=== PATIENT | female | born 1940 | race Two or more races ===

== ENCOUNTER 2017-02-04 21:26 | Inpatient (IN) | payer MEDICARE, BC ==
[2017-02-04] MEDS ORDERED: RX INFO: IV CONTRAST WAS GIVEN 1 EACH MISC MISCELLANE PRN (22:57)
[2017-02-04] MEDS ORDERED: MORPHINE SULFATE 2 MG/ML SYRINGE IVP STA (22:57)
[2017-02-04] MEDS ORDERED: SODIUM CHLORIDE 0.9% 1,000 ML IV STA (22:57)
--- NOTE | 2017-02-04 23:03 | ED ---
General Adult HPI - General Chief complaint: Abdominal Pain Stated complaint: Right flank pain Time Seen by Provider: 02/04/17 22:39 Source: patient, family, RN notes reviewed Mode of arrival: wheelchair Limitations: language barrier - History of Present Illness Initial comments: Patient is a pleasant 76-year-old female presenting to the emergency Department with right flank pain. Patient is a poor historian and history is supplemented with family. Onset of symptoms was just a few hours ago. Discomfort is right flank. Patient states she feels like she needs to urinate. There is question if there is some old seen in the vaginal area. Patient has also had some tingling on the left side of the face for the past week. Family questions whether or not there could be any facial droop. - Related Data Home Medications Medication Instructions Recorded Confirmed Gabapentin [Neurontin] 100 mg PO TID 02/04/17 02/04/17 Latanoprost Ophth [Xalatan 0.005%] 1 drops BOTH EYES HS 02/04/17 02/04/17 Levothyroxine Sodium [Synthroid] 100 mcg PO DAILY 02/04/17 02/04/17 Lisinopril-Hctz 20-12.5 mg 1.5 tab PO DAILY 02/04/17 02/04/17 [Zestoretic 20-12.5] Sertraline [Zoloft] 150 mg PO DAILY 02/04/17 02/04/17 Simvastatin [Zocor] 40 mg PO DAILY 02/04/17 02/04/17 Travoprost [Travatan Z 0.004%] 1 drop BOTH EYES HS 02/04/17 02/04/17 metFORMIN HCL [Glucophage] 500 mg PO TID-W/MEALS 02/04/17 02/04/17 Allergies Allergy/AdvReac Type Severity Reaction Status Date / Time No Known Allergies Allergy Verified 02/04/17 23:06 Review of Systems ROS Statement: Those systems with pertinent positive or pertinent negative responses have been documented in the HPI. ROS Other: All systems not noted in ROS Statement are negative. Constitutional: Denies: fever Eyes: Denies: eye pain ENT: Denies: ear pain Respiratory: Denies: cough Cardiovascular: Denies: chest pain Endocrine: Denies: fatigue Gastrointestinal: Reports: abdominal pain. Denies: nausea, vomiting, constipation Genitourinary: Reports: urgency. Denies: dysuria Musculoskeletal: Denies: back pain Skin: Denies: rash Neurological: Reports: paresthesias (Left facial). Denies: headache Past Medical History Past Medical History: CVA/TIA, Diabetes Mellitus History of Any Multi-Drug Resistant Organisms: None Reported Past Surgical History: No Surgical Hx Reported Past Psychological History: No Psychological Hx Reported Smoking Status: Never smoker Past Alcohol Use History: None Reported Past Drug Use History: None Reported General Exam Limitations: language barrier General appearance: alert, anxious Head exam: Present: atraumatic Eye exam: Present: normal appearance, PERRL ENT exam: Present: normal oropharynx Neck exam: Present: normal inspection Respiratory exam: Present: normal lung sounds bilaterally Cardiovascular Exam: Present: regular rate, normal rhythm Expanded Peripheral pulses: 2+: Dorsalis Pedis (R), Dorsalis Pedis (L) GI/Abdominal exam: Present: soft, tenderness (Mild to moderate tenderness right flank to abdomen.), normal bowel sounds. Absent: distended, guarding, rebound, rigid, pulsatile mass External exam: Present: normal external exam (RN: Domi is Present.), other ( No visualized or palpated prolapse.) By manual exam: Present: normal by manual exam, other (No prolapse palpated.) Extremities exam: Present: normal inspection Back exam: Present: CVA tenderness (R) (Mild) Neurological exam: Present: alert, CN II-XII intact (Unable to visualize specific facial weakness) Expanded Cranial nerves: EOM's Intact: Normal, Facial Sensation: Normal Sensory exam: Upper Extremity Light Touch: Normal, Lower Extremity Light Touch: Normal Motor strength exam: RUE: 5, LUE: 5, RLE: 5, LLE: 5 Psychiatric exam: Present: normal affect, normal mood Skin exam: Absent: rash Course Vital Signs 02/04/17 21:34 Temperature 98.0 F Pulse Rate 72 Respiratory 20 Rate Blood Pressure 199/97 Medical Decision Making - Medical Decision Making Patient reevaluated and resting comfortably in bed. Patient has urinated 700 mL in the emergency department. Patient states she feels somewhat better. Abdomen is soft however still has tenderness on the right side. Case discussed with practitioner Hay, who will admit for Dr. Price, covering for hospital call. - Lab Data Result diagrams: 02/04/17 23:10 02/04/17 23:10 Lab Results 02/04/17 02/04/17 02/04/17 Range/Units 23:10 23:10 23:10 WBC 9.7 (3.8-10.6) k/uL RBC 4.50 (3.80-5.40) m/uL Hgb 12.2 (11.4-16.0) gm/dL Hct 37.0 (34.0-46.0) % MCV 82.2 (80.0-100.0) fL MCH 27.0 (25.0-35.0) pg MCHC 32.9 (31.0-37.0) g/dL RDW 13.5 (11.5-15.5) % Plt Count 221 (150-450) k/uL Neutrophils % 54 % Lymphocytes % 36 % Monocytes % 5 % Eosinophils % 3 % Basophils % 0 % Neutrophils # 5.2 (1.3-7.7) k/uL Lymphocytes # 3.5 (1.0-4.8) k/uL Monocytes # 0.5 (0-1.0) k/uL Eosinophils # 0.3 (0-0.7) k/uL Basophils # 0.0 (0-0.2) k/uL PT 9.9 (9.0-12.0) sec INR 1.0 (<1.1) APTT 25.2 (22.0-30.0) sec Sodium 140 (137-145) mmol/L Potassium 4.2 (3.5-5.1) mmol/L Chloride 104 (98-107) mmol/L Carbon Dioxide 24 (22-30) mmol/L Anion Gap 12 mmol/L BUN 23 H (7-17) mg/dL Creatinine 0.80 (0.52-1.04) mg/dL Est GFR (MDRD) Af Amer >60 (>60 ml/min/1.73 sqM) Est GFR (MDRD) Non-Af >60 (>60 ml/min/1.73 sqM) Glucose 97 (74-99) mg/dL Calcium 9.6 (8.4-10.2) mg/dL Total Bilirubin 0.3 (0.2-1.3) mg/dL AST 18 (14-36) U/L ALT 26 (9-52) U/L Alkaline Phosphatase 91 (38-126) U/L Total Protein 7.5 (6.3-8.2) g/dL Albumin 4.4 (3.5-5.0) g/dL Amylase 61 (30-110) U/L Lipase 149 (23-300) U/L Urine Color Urine Appearance (Clear) Urine pH (5.0-8.0) Ur Specific Blairs (1.001-1.035) Urine Protein (Negative) Urine Glucose (UA) (Negative) Urine Ketones (Negative) Urine Blood (Negative) Urine Nitrite (Negative) Urine Bilirubin (Negative) Urine Urobilinogen (<2.0) mg/dL Ur Leukocyte Esterase (Negative) Urine RBC (0-5) /hpf Urine WBC (0-5) /hpf Ur Squamous Epith Cells (0-4) /hpf Urine Bacteria (None) /hpf 02/04/17 Range/Units 23:10 WBC (3.8-10.6) k/uL RBC (3.80-5.40) m/uL Hgb (11.4-16.0) gm/dL Hct (34.0-46.0) % MCV (80.0-100.0) fL MCH (25.0-35.0) pg MCHC (31.0-37.0) g/dL RDW (11.5-15.5) % Plt Count (150-450) k/uL Neutrophils % % Lymphocytes % % Monocytes % % Eosinophils % % Basophils % % Neutrophils # (1.3-7.7) k/uL Lymphocytes # (1.0-4.8) k/uL Monocytes # (0-1.0) k/uL Eosinophils # (0-0.7) k/uL Basophils # (0-0.2) k/uL PT (9.0-12.0) sec INR (<1.1) APTT (22.0-30.0) sec Sodium (137-145) mmol/L Potassium (3.5-5.1) mmol/L Chloride (98-107) mmol/L Carbon Dioxide (22-30) mmol/L Anion Gap mmol/L BUN (7-17) mg/dL Creatinine (0.52-1.04) mg/dL Est GFR (MDRD) Af Amer (>60 ml/min/1.73 sqM) Est GFR (MDRD) Non-Af (>60 ml/min/1.73 sqM) Glucose (74-99) mg/dL Calcium (8.4-10.2) mg/dL Total Bilirubin (0.2-1.3) mg/dL AST (14-36) U/L ALT (9-52) U/L Alkaline Phosphatase (38-126) U/L Total Protein (6.3-8.2) g/dL Albumin (3.5-5.0) g/dL Amylase (30-110) U/L Lipase (23-300) U/L Urine Color Light Yellow Urine Appearance Clear (Clear) Urine pH 5.5 (5.0-8.0) Ur Specific Blairs 1.008 (1.001-1.035) Urine Protein Negative (Negative) Urine Glucose (UA) Negative (Negative) Urine Ketones Negative (Negative) Urine Blood Negative (Negative) Urine Nitrite Positive H (Negative) Urine Bilirubin Negative (Negative) Urine Urobilinogen <2.0 (<2.0) mg/dL Ur Leukocyte Esterase Trace H (Negative) Urine RBC 3 (0-5) /hpf Urine WBC 2 (0-5) /hpf Ur Squamous Epith Cells <1 (0-4) /hpf Urine Bacteria Rare H (None) /hpf - Radiology Data Radiology results: report reviewed (Computed tomography scan of the abdomen pelvis shows no acute process. Computed tomography scan of the brain shows no acute process.) Disposition Clinical Impression: Abdominal pain, Paresthesia Disposition: ADMITTED IP TO THIS HOSP
[2017-02-04 23:27] LABS: Basophils % (A) 0 %; CH 27.4; CHCM 33.4; Eosinophils # (A) 0.3 k/uL (0-0.7); Eosinophils % (A) 3 %; HDW 2.53; HGB 12.2 gm/dL (11.4-16.0); Luc # (Auto) 0.15; Luc % (Auto) 2; Lymphocytes # (A) 3.5 k/uL (1.0-4.8); Lymphocytes % (A) 36 %; MCHC 32.9 g/dL (31.0-37.0); MCV 82.2 fL (80.0-100.0); Mean Platelet Volume 7.4; Monocytes # (A) 0.5 k/uL (0-1.0); Monocytes % (A) 5 %; Neutrophils # (A) 5.2 k/uL (1.3-7.7); Neutrophils % (A) 54 %; RDW 13.5 % (11.5-15.5); WBC 9.7 k/uL (3.8-10.6); WBC (Perox) 10.26
[2017-02-04 23:32] LABS: Appearance,Urine Clear (Clear); Bacteria,Urine Rare /hpf; Bilirubin,Urine Negative (Negative); Glucose,Urine (UA) Negative (Negative); Ketones,Urine Negative (Negative); Leukocyte Esterase,Urine Trace (Negative); Nitrite,Urine Positive (Negative); PH, Urine 5.5 (5.0-8.0); Particle Count 26109; Protein,Urine Negative (Negative); RBC,Urine 3 /hpf (0-5); Specific Gravity,Urine 1.008 (1.001-1.035); Squamous Epithelial Cell,Urine <1 /hpf (0-4); UA Billing (MACRO vs. MICRO) MICRO; Urobilinogen,Urine <2.0 mg/dL (<2.0); WBC,Urine 2 /hpf (0-5)
[2017-02-04 23:35] LABS: Prothrombin Time 9.9 sec (9.0-12.0)
[2017-02-04 23:36] LABS: Partial Thromboplastin Time 25.2 sec (22.0-30.0)
[2017-02-04 23:39] LABS: ALT 26 U/L (9-52); AST 18 U/L (14-36); Alkaline Phosphatase 91 U/L (38-126); Amylase 61 U/L (30-110); Anion Gap 12 mmol/L; Blood Urea Nitrogen 23 mg/dL (7-17); Calcium 9.6 mg/dL (8.4-10.2); Carbon Dioxide 24 mmol/L (22-30); Chloride 104 mmol/L (98-107); Glucose 97 mg/dL (74-99); Non-African American GFR(MDRD) >60 (>60 ml/min/1.73 sqM); Potassium 4.2 mmol/L (3.5-5.1); Sodium 140 mmol/L (137-145); Total Bilirubin 0.3 mg/dL (0.2-1.3); Total Protein 7.5 g/dL (6.3-8.2)
--- NOTE | 2017-02-05 00:01 | CT ---
EXAMINATION TYPE: CT brain wo con DATE OF EXAM: 02/04/2017 11:55 PM COMPARISON: 12/27/2012 HISTORY: Facial paresthesia. CT DLP: mGycm Automated exposure control for dose reduction was used. FINDINGS: There is mild cerebral cortical atrophy. There is no mass effect nor midline shift. There is no sign of intracranial hemorrhage. Calvarium is intact. IMPRESSION: Mild atrophy. No acute intracranial abnormality. No change.
--- NOTE | 2017-02-05 00:06 | CT ---
EXAMINATION TYPE: CT abdomen pelvis w con DATE OF EXAM: 02/04/2017 11:59 PM COMPARISON: 04/24/2011 HISTORY: CT DLP: mGycm Automated exposure control for dose reduction was used. TECHNIQUE: Helical acquisition of images was performed from the lung bases through the pelvis. CONTRAST: Omnipaque 100 mL. FINDINGS: Lung bases are clear of consolidation. There is mild subsegmental atelectasis at the lung bases. Ther e are numerous calcified splenic granulomata. Liver shows no focal defect. Gallbladder appears normal . There is no sign of a pancreatic mass. Bile ducts are not dilated. There is no adrenal mass. Kidney s show satisfactory contrast opacification. There is no hydronephrosis. Ureters are not dilated. Ther e is a 1 cm cortical cyst on the upper pole right kidney. There is no retroperitoneal adenopathy. The re is a small umbilical hernia that contains fat. There are multiple sigmoid diverticula. There is no sign of diverticulitis. The appendix appears normal. Terminal ileum appears normal. There is atheros clerotic change in the abdominal aorta. Heart is enlarged. I see no bony destructive process. IMPRESSION: ATHEROSCLEROTIC VASCULAR DISEASE. CARDIOMEGALY. HEALED GRANULOMATOUS DISEASE. MINIMAL ATELECTASIS AT THE LUNG BASES. MILD COLONIC DIVERTICULOSIS. NO SIGN OF ACUTE ABDOMEN AND PELVIS. NO ADVERSE CHANGE C OMPARED TO OLD EXAM. SPONDYLOTIC CHANGES NOTED IN THE LUMBAR SPINE.
[2017-02-05] MEDS ORDERED: ONDANSETRON 4 MG/2 ML VIAL IVP PRN (00:32)
[2017-02-05] MEDS ORDERED: NALOXONE 0.4 MG/ML 1 ML VIAL IV PRN (00:32)
[2017-02-05] MEDS ORDERED: MORPHINE SULFATE 4 MG/ML SYRINGE IV PRN (00:32)
[2017-02-05] MEDS: SODIUM CHLORIDE 0.9% 1,000 ML IV SCH ×3 (01:14→20:09)
[2017-02-05 02:38] VITALS: BMI 26.1
[2017-02-05 05:47] LABS: Glucose,Whole Blood 97 mg/dL (75-99)
[2017-02-05] MEDS: LEVOTHYROXINE 100 MCG TAB PO SCH (06:54)
[2017-02-05] MEDS: metFORMIN 500 MG TAB PO SCH ×2 (06:55→11:45)
[2017-02-05] MEDS: INSULIN LISPRO (humaLOG) 300 UNIT/3 ML VIAL SQ SCH ×4 (06:55→21:03)
--- NOTE | 2017-02-05 07:14 | P.PN ---
Progress Note - Text CT of the abdomen and pelvis reviewed. No acute abdominal pathology identified. Will follow. Please see full dictated consultation.
--- NOTE | 2017-02-05 08:38 | US ---
EXAMINATION TYPE: US carotid duplex BILAT DATE OF EXAM: 02/05/2017 8:17 AM COMPARISON: 01/01/2013 CLINICAL HISTORY: Stenosis. EXAM MEASUREMENTS: RIGHT: Peak Systolic Velocity (PSV) cm/sec ----- Right CCA: 54.0 ----- Right ICA: 70.5 ----- Right ECA: 77.2 ICA/CCA ratio: 1.3 RIGHT: End Diastole cm/sec ----- Right CCA: 9.7 ----- Right ICA: 19.1 ----- Right ECA: 5.4 LEFT: Peak Systolic Velocity (PSV) cm/sec ----- Left CCA: 51.7 ----- Left ICA: 76.5 ----- Left ECA: 73.2 ICA/CCA ratio: 1.5 LEFT: End Diastole cm/sec ----- Left CCA: 13.2 ----- Left ICA: 21.5 ----- Left ECA: 0.0 VERTEBRALS (direction of flow): Right Vertebral: Antegrade Left Vertebral: Antegrade Mild plaque, no significant velocity elevations. IMPRESSION: 1. There are is mild plaque formation with no significant hemodynamic stenosis.
[2017-02-05 11:52] LABS: Glucose,Whole Blood 85 mg/dL (75-99)
--- NOTE | 2017-02-05 12:11 | ECHOF ---
Referral Reason:Thrombus MEASUREMENTS -------- HEIGHT: 162.6 cm WEIGHT: 68.9 kg BP: 155/74 RVIDd: 2.6 cm (< 3.3) IVSd: 1.1 cm (0.6 - 1.1) LVIDd: 3.7 cm (3.9 - 5.3) LVPWd: 1.1 cm (0.6 - 1.1) IVSs: 1.7 cm LVIDs: 2.5 cm LVPWs: 1.8 cm LA Diam: 3.7 cm (2.7 - 3.8) LAESV Index (A-L): 37.72 ml/m Ao Diam: 2.9 cm (2.0 - 3.7) AV Cusp: 1.8 cm (1.5 - 2.6) LA Diam: 3.4 cm (2.7 - 3.8) MV EXCURSION: 13.536 mm (> 18.000) MV EF SLOPE: 75 mm/s (70 - 150) EPSS: 0.6 cm MV E Cody: 0.83 m/s MV DecT: 244 ms MV A Cody: 1.13 m/s MV E/A Ratio: 0.73 RAP: 5.00 mmHg RVSP: 20.48 mmHg FINDINGS -------- Resting bradycardia (HR<60bpm). This was a technically good study. There is borderline concentric left ventricular hypertrophy. Overall left ventricular systolic function is normal with, an EF between 55 - 60 %. The right ventricle is normal in size. LA is moderately dilated 34-39 ml/m2 The right atrium is normal in size. Aortic valve is trileaflet and is mildly thickened. Trace amount of aortic regurgitation. The mitral valve leaflets are mildly thickened. Mild mitral annular calcification present. Mild mitral regurgitation is present. Mild tricuspid regurgitation present. Right ventricular systolic pressure is normal at < 35 mmHg. Trace/mild (physiologic) pulmonic regurgitation. The aortic root size is normal. Normal inferior vena cava with normal inspiratory collapse consistent with estimated right atrial pressure of 5 mmHg. There is no pericardial effusion. CONCLUSIONS -------- 1. Resting bradycardia (HR<60bpm). 2. The mitral valve leaflets are mildly thickened. 3. Mild mitral annular calcification present. 4. Mild mitral regurgitation is present. 5. Mild tricuspid regurgitation present. 6. Right ventricular systolic pressure is normal at < 35 mmHg. 7. Trace/mild (physiologic) pulmonic regurgitation. 8. The aortic root size is normal. 9. Normal inferior vena cava with normal inspiratory collapse consistent with estimated right atrial pressure of 5 mmHg. 10. There is no pericardial effusion. 11. This was a technically good study. 12. There is borderline concentric left ventricular hypertrophy. 13. Overall left ventricular systolic function is normal with, an EF between 55 - 60 %. 14. The right ventricle is normal in size. 15. LA is moderately dilated 34-39 ml/m2 16. The right atrium is normal in size. 17. Aortic valve is trileaflet and is mildly thickened. 18. Trace amount of aortic regurgitation. HOUSE PLAYER: Lillian Sanchez RDCS
[2017-02-05 12:19] LABS: Hemoglobin A1C 6.3 % (4.2-6.1)
--- NOTE | 2017-02-05 15:30 | US ---
EXAMINATION TYPE: US gallbladder DATE OF EXAM: 02/05/2017 3:16 PM COMPARISON: NONE CLINICAL HISTORY: Right upper quadrant pain. EXAM MEASUREMENTS: Liver Length: 12.0 cm Gallbladder Wall: 0.3 cm CBD: 0.8 cm Right Kidney: 9.3 x 4.3 x 4.6 cm Pancreas: not well visualized mostly obscured by overlying bowel gas Liver: There is mild heterogeneity of the liver suggestive of some mild fatty infiltration. Gallbladder: dependant sludge noted Evidence for sonographic Jim's sign: CBD: dilated Right Kidney: wnl IMPRESSION: 1. Sludge within the gallbladder. 2. Limited evaluation of the pancreas due to bowel gas. 3. Mild fatty infiltration of liver.
--- NOTE | 2017-02-05 15:43 | P.GSCN ---
History of Present Illness Consult date: 02/05/17 Reason for Consult: Abdominal pain right flank History of present illness: 76-year-old female presented to the emergency room with a history of having developed right flank pain. Patient is a poor historian secondary to a language barrier. Patient this morning indicates that she was having pain in the right flank. Place hand to the right flank indicating reference point as to where the pain is. Given the above clinical presentation the attending requested a surgical eval patients being seen by surgical service for the above -mentioned symptoms in the emergency room the patient did have a CAT scan of the abdomen pelvis with contrast in summary it showed mild diverticulosis no evidence of an acute abdomen or pelvis no signs of diverticulitis the appendix appeared normal gallbladder appeared normal there was no sign of the pancreatic mass kidney showed no hydronephrosis ultrasound of the gallbladder showed sludge within the gallbladder questioning patient about her past surgical history she indicates none Additionally in the emergency room the patient's family indicates patient was having some tingly sensation on the left-sided face onset for the past several weeks. There was no evidence of any facial droop The echocardiogram was obtained did show left ventricular systolic function normal with EF between 55 and 60% Review of Systems Difficult to obtain due to language barrier Past Medical History Past Medical History: CVA/TIA, Diabetes Mellitus, Hyperlipidemia, Hypertension, Osteoarthritis (OA), Thyroid Disorder Additional Past Medical History / Comment(s): residual - right sided weakness History of Any Multi-Drug Resistant Organisms: None Reported Past Surgical History: No Surgical Hx Reported Past Anesthesia/Blood Transfusion Reactions: No Reported Reaction Past Psychological History: No Psychological Hx Reported Smoking Status: Never smoker Past Alcohol Use History: None Reported Past Drug Use History: None Reported - Past Family History Father Family Medical History: Diabetes Mellitus Mother Family Medical History: Diabetes Mellitus Medications and Allergies Home Medications Medication Instructions Recorded Confirmed Type Gabapentin [Neurontin] 100 mg PO TID 02/04/17 02/04/17 History Latanoprost Ophth [Xalatan 0.005%] 1 drops BOTH EYES HS 02/04/17 02/04/17 History Levothyroxine Sodium [Synthroid] 100 mcg PO DAILY 02/04/17 02/04/17 History Lisinopril-Hctz 20-12.5 mg 1.5 tab PO DAILY 02/04/17 02/04/17 History [Zestoretic 20-12.5] Sertraline [Zoloft] 150 mg PO DAILY 02/04/17 02/04/17 History Simvastatin [Zocor] 40 mg PO DAILY 02/04/17 02/04/17 History Travoprost [Travatan Z 0.004%] 1 drop BOTH EYES HS 02/04/17 02/04/17 History metFORMIN HCL [Glucophage] 500 mg PO TID-W/MEALS 02/04/17 02/04/17 History Allergies Allergy/AdvReac Type Severity Reaction Status Date / Time No Known Allergies Allergy Verified 02/04/17 23:06 Surgical - Exam Vital Signs Temp Pulse Resp BP 98.0 F 72 20 199/97 02/04/17 21:34 02/04/17 21:34 02/04/17 21:34 02/04/17 21:34 GENERAL APPEARANCE: 76-year-old female patient is alert, oriented, in no acute distress. VITAL SIGNS: Reviewed HEENT: Head is normocephalic and atraumatic. Pupils are equal and reactive. The nares are patent. Oropharynx is clear without lesions. NECK: Supple without lymphadenopathy. Traches midline. HEART: S1, S2. Regular rate and rhythm. No murmur noted denying chest pain LUNGS: No crackles or wheezes are heard. Adequate air entry ABDOMEN: Soft, slight tenderness, right upper quadrant abdominal discomfort nondistended with good bowel sounds. No peritoneal signs. No palpable organomegaly or masses. No nausea vomiting no frequent stooling EXTREMITIES: Normal skin color and turgor. No cyanosis, rash, ulceration, clubbing or edema. Radial pedal pulses are 2/4 bilaterally. NEUROLOGICAL: No focal deficits. Strength and sensation are grossly intact. Results - Labs 02/04/17 23:10 02/04/17 23:10 Assessment and Plan Plan: Impression Present on admission right upper quadrant pain unclear etiology Ultrasound of the gallbladder sludge noted with mild fatty infiltration Echocardiogram left ventricular systolic function normal EF between 55 and 60% Type 2 diabetes non-insulin Plan Computed tomography scan of the abdomen pelvis reviewed showed no acute abdominal pathology identified will continue with workup Resume home meds as appropriate IV fluid for rehydration Pain control Further surgical recommendations pending DVT and GI prophylaxis The above dictated assessment and findings were discussed with Marlene Sotomayor and the plan of care have been dictated as directed. Ronda Wolff nurse practitioner acting as a scribe for dr Rosario
[2017-02-05] MEDS: ACETAMINOPHEN TAB 325 MG TAB PO PRN (16:14)
[2017-02-05] MEDS: AMPICILLIN-SULBACTAM 3 GM in SODIUM CHLORIDE 0.9% 100 ML IVPB SCH ×2 (17:00→23:18)
[2017-02-05 17:03] LABS: Glucose,Whole Blood 86 mg/dL (75-99)
--- NOTE | 2017-02-05 19:05 | P.CNNES ---
History of Present Illness Consult date: 02/05/17 History of Present Illness: The patient is a 76-year-old female who presented to the emergency room on 02/04/2017 with right flank pain. She has CAT scan of the abdomen and pelvis in the emergency room which showed mild diverticulitis. She was admitted to the hospital with right upper quadrant pain. She had an ultrasound of the gallbladder which showed sludge and fatty infiltration . Neurology was consulted to evaluate for left cheek numbness. The patient reports a history of stroke one year ago involving left face and arm numbness. States she's had a total of 3 strokes in the past. He states the numbness on the left face began one week ago and has been diminishing over the last few days. She had a CT of the brain in the emergency room which showed mild atrophy without any acute intracranial abnormality. Review of Systems Constitutional: Denies chills, Denies fever Eyes: denies blurred vision, denies pain Ears, nose, mouth and throat: Denies headache, Denies sore throat Cardiovascular: Denies chest pain, Denies shortness of breath Respiratory: Denies cough Gastrointestinal: Denies abdominal pain, Denies diarrhea, Denies nausea, Denies vomiting Musculoskeletal: Denies myalgias Integumentary: Denies pruritus, Denies rash Neurological: Reports as per HPI Psychiatric: Denies anxiety, Denies depression Endocrine: Denies fatigue, Denies weight change Past Medical History Past Medical History: CVA/TIA, Diabetes Mellitus, Hyperlipidemia, Hypertension, Osteoarthritis (OA), Thyroid Disorder Additional Past Medical History / Comment(s): residual - right sided weakness History of Any Multi-Drug Resistant Organisms: None Reported Past Surgical History: No Surgical Hx Reported Past Anesthesia/Blood Transfusion Reactions: No Reported Reaction Past Psychological History: No Psychological Hx Reported Smoking Status: Never smoker Past Alcohol Use History: None Reported Past Drug Use History: None Reported - Past Family History Father Family Medical History: Diabetes Mellitus Mother Family Medical History: Diabetes Mellitus Medications and Allergies Home Medications Medication Instructions Recorded Confirmed Type Gabapentin [Neurontin] 100 mg PO TID 02/04/17 02/04/17 History Latanoprost Ophth [Xalatan 0.005%] 1 drops BOTH EYES HS 02/04/17 02/04/17 History Levothyroxine Sodium [Synthroid] 100 mcg PO DAILY 02/04/17 02/04/17 History Lisinopril-Hctz 20-12.5 mg 1.5 tab PO DAILY 02/04/17 02/04/17 History [Zestoretic 20-12.5] Sertraline [Zoloft] 150 mg PO DAILY 02/04/17 02/04/17 History Simvastatin [Zocor] 40 mg PO DAILY 02/04/17 02/04/17 History Travoprost [Travatan Z 0.004%] 1 drop BOTH EYES HS 02/04/17 02/04/17 History metFORMIN HCL [Glucophage] 500 mg PO TID-W/MEALS 02/04/17 02/04/17 History Allergies Allergy/AdvReac Type Severity Reaction Status Date / Time No Known Allergies Allergy Verified 02/04/17 23:06 Physical Examination - Vital Signs Vital Signs: Vital Signs Temp Pulse Pulse Resp BP BP Pulse Ox 02/05/17 16:29 97.6 F 56 L 16 169/81 99 02/05/17 16:27 54 L 20 02/05/17 15:33 20 02/05/17 11:23 97.7 F 70 16 168/87 99 02/05/17 07:56 97.6 F 53 L 16 155/74 98 02/05/17 03:16 54 L 02/05/17 02:16 97.4 F L 54 L 18 154/73 96 02/05/17 01:16 97.1 F L 80 18 154/76 96 02/05/17 00:48 97.6 F 60 18 165/84 97 Intake and Output 02/05/17 02/05/17 02/05/17 06:59 14:59 22:59 Intake Total 1036 Output Total 400 800 Balance -400 1036 -800 Intake: Intake, IV Titration 800 Amount Sodium Chloride 0.9% 1, 800 000 ml @ 100 mls/hr IV . Q10H [facility] Rx#:[id number] Oral 236 Output: Urine 400 800 Other: Voiding Method Toilet Toilet Toilet # Voids 2 # Bowel Movements 0 Weight 69 kg - Constitutional General appearance: average body habitus, cooperative - EENT EENT: PERRL, hearing intact, vision intact - Respiratory Respiratory: lungs clear - Cardiovascular Cardiovascular: regular rate, normal S1, normal S2 Extremities: no peripheral edema bilaterally - Neurologic Mental status she was awake alert and oriented 3 there is no aphasia or dysarthria. Cranial nerve examination: PERRL, EOMI, VFF, V1/V2/V3 grossly intact, face symmetric, tongue midline Speech examination: intact Detailed motor examination: grossly full strength in all extremities Detailed sensory examination: intact, light touch Reflex and gait examination: intact - Psychiatric Psychiatric: mood/affect appropriate Results - Laboratory Findings CBC and BMP: 02/04/17 23:10 02/04/17 23:10 Assessment and Plan (1) Right flank pain Status: Acute Code(s): R10.9 - UNSPECIFIED ABDOMINAL PAIN (2) Left facial numbness Status: Acute Code(s): R20.0 - ANESTHESIA OF SKIN (3) History of stroke Status: Chronic Code(s): Z86.73 - PRSNL HX OF TIA (TIA), AND CEREB INFRC W/O RESID DEFICITS Plan: The patient is a 76-year-old woman admitted to the hospital with right flank pain. Neurology was requested to see the patient regarding left face numbness. Patient reports she's had it for a week and it's getting better. The patient reports she had similar episode when she had a stroke involving left face and arm last year. Patient has had a carotid ultrasound which showed no significant stenosis. She also had an echocardiogram which showed EF of 55-60% Her CT of the brain showed atrophy. Recommend patient be started on antiplatelet agent such as Ecotrin 325 mg a day for stroke prevention.
--- NOTE | 2017-02-05 19:07 | XR ---
EXAMINATION TYPE: XR chest 2V DATE OF EXAM: 02/05/2017 5:59 PM COMPARISON: 12/27/2012 HISTORY: Pneumonia. Chest pain TECHNIQUE: Frontal and lateral views of the chest are obtained. FINDINGS: There is coarsening of interstitial markings. There is no gross heart failure. There are n o hilar masses. Heart size is normal. Thoracic aorta is atheromatous. There are chest leads. I see no pleural effusion. IMPRESSION: Atheromatous aorta. No active cardiopulmonary disease. No definite change compared to ol d exam.
[2017-02-05] MEDS: FAMOTIDINE 20 MG TAB PO SCH (20:09)
[2017-02-05] MEDS: MORPHINE SULFATE 2 MG/ML SYRINGE IV PRN (20:10)
[2017-02-05 20:51] LABS: Glucose,Whole Blood 121 mg/dL (75-99)
--- NOTE | 2017-02-05 21:58 | HP ---
DATE OF ADMISSION: 02/05/2017 76-year-old female with language barrier, very limited Ukrainian, came in with complaints of right lower quadrant pain, appears to be sharp in nature about a 6/10 in severity, radiating into the right ( ). Patient also has pain in the right upper quadrant. The patient has right flank pain as well. UA essentially within essentially within normal limits. The patient's ( ) essentially within normal limits. Ct scan of the abdomen did not reveal any significant abnormality. Surgery evaluated the patient and they are doing an ultrasound of the gallbladder. Patient still has pain. Patient denied any nausea or vomiting. The patient denied any diarrhea. Patient denied any blood in the stools. Denied any fever or chills. The patient had a low-grade fever today of 100.5. I will obtain a chest x-ray. Patient did have a low grade fever today. I will obtain a blood culture, urine culture. Etiology of her abdominal pain is not clear at this point of time. 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 Neurology was consulted. Patient underwent work-up for TIA or stroke although work-up including echocardiogram and carotid Doppler are negative. Patient does have gallbladder sludge in the ultrasound. I will put the patient on Unasyn. I will start the patient on Unasyn. REVIEW OF SYSTEMS: CONSTITUTIONAL: No fever, no malaise, no fatigue. HEENT: No recent visual problems or hearing problems. Denied any sore throat. CARDIOVASCULAR: No chest pain, orthopnea, PND, no palpitations, no syncope. PULMONARY: No shortness of breath, no cough, no hemoptysis. GASTROINTESTINAL: As described in the HPI. NEUROLOGICAL: No headaches, no weakness, no numbness. HEMATOLOGICAL: Denies any bleeding or petechiae. GENITOURINARY: Denies any burning micturition, frequency, or urgency. MUSCULOSKELETAL/RHEUMATOLOGICAL: Denies any joint pain, swelling, or any muscle pain. ENDOCRINE: Denies any polyuria or polydipsia. The rest of the 14 point review of systems is negative. PAST MEDICAL HISTORY: CVA/TIA, diabetes mellitus, type II, hyperlipidemia, hypertension, osteoarthritis, hypothyroidism. FAMILY HISTORY: Type 2 diabetes mellitus in mother and father. SOCIAL HISTORY: Denied any smoking, alcohol abuse or any drug abuse. Home medications: 1. Gabapentin. 2. Latanoprost. 3. Levothyroxine. 4. Lisinopril. 5. Hydrochlorothiazide. 6. Sertraline. 7. Simvastatin. 8. ( ). 9. Metformin. ALLERGIES: No known drug allergies. PHYSICAL EXAMINATION: Temperature 98.0, pulse 72, respiratory rate 20, blood pressure is 119/97, saturating at 96% on room air. GENERAL: The patient is alert and oriented x3, not in any acute distress. Well developed, well nourished. HEENT: Pupils are round and equally reacting to light. EOMI. No scleral icterus. No conjunctival pallor. Normocephalic, atraumatic. No pharyngeal erythema. No thyromegaly. CARDIOVASCULAR: S1 and S2 present. No murmurs, rubs, or gallops. PULMONARY: Chest is clear to auscultation, no wheezing or crackles. ABDOMEN: Soft and patient has right upper quadrant tenderness as well as right lower quadrant tenderness and patient's Jim's sign is a bit positive. MUSCULOSKELETAL: No joint swelling or deformity. EXTREMITIES: No cyanosis, clubbing, or pedal edema. NEUROLOGICAL: Gross neurological examination did not reveal any focal deficits. SKIN: No rashes. LABORATORY DATA: CBC, CMP, essentially within normal limits. ASSESSMENT AND PLAN: 1. Abdominal pain; unsure of the exact etiology. Gallbladder etiology cannot be ruled out. Because of which the patient had an ultrasound which is suspicious for gallbladder sludge. I will start him on Unasyn because of the fever. 2. Signs of sepsis secondary to possible gallbladder sludge or gallbladder etiology. 3. Tingling and numbness on the left side of the face I believe it is related to ( ) causes. Neurology was consulted although neurological work-up is negative. 4. Hypothyroidism. 5. Hyperlipidemia. 6. Hypertension. 7. Diabetes mellitus. For the above mentioned, chronic medical problems, I will go ahead and continue her home medications except for Lisinopril hydrochlorothiazide, because her blood pressure is on the low-normal side and patient probably will benefit from sliding scale insulin rather than metformin, which will be started. Patient will be transferred out of [facility] care.
[2017-02-06] MEDS: LEVOTHYROXINE 100 MCG TAB PO SCH (06:29)
[2017-02-06] MEDS: AMPICILLIN-SULBACTAM 3 GM in SODIUM CHLORIDE 0.9% 100 ML IVPB SCH ×4 (06:29→23:37)
[2017-02-06 09:07] LABS: CH 26.8; HCT 36.4 % (34.0-46.0); HDW 2.48; HGB 11.8 gm/dL (11.4-16.0); MCH 27.2 pg (25.0-35.0); MCHC 32.4 g/dL (31.0-37.0); Mean Platelet Volume 7.2; RBC 4.33 m/uL (3.80-5.40); RDW 13.5 % (11.5-15.5); WBC 6.1 k/uL (3.8-10.6)
[2017-02-06 09:20] LABS: ALT 18 U/L (9-52); AST 15 U/L (14-36); Alkaline Phosphatase 64 U/L (38-126); Anion Gap 12 mmol/L; Blood Urea Nitrogen 16 mg/dL (7-17); Carbon Dioxide 23 mmol/L (22-30); Chloride 107 mmol/L (98-107); Glucose 139 mg/dL (74-99); Non-African American GFR(MDRD) >60 (>60 ml/min/1.73 sqM); Potassium 4.2 mmol/L (3.5-5.1); Sodium 142 mmol/L (137-145); Total Bilirubin 0.4 mg/dL (0.2-1.3); Total Protein 6.4 g/dL (6.3-8.2)
[2017-02-06] MEDS: FAMOTIDINE 20 MG TAB PO SCH ×2 (09:38→21:46)
[2017-02-06] MEDS: INSULIN LISPRO (humaLOG) 300 UNIT/3 ML VIAL SQ SCH ×4 (09:39→21:36)
[2017-02-06] MEDS: SODIUM CHLORIDE 0.9% 1,000 ML IV SCH (09:41)
[2017-02-06] MEDS: MORPHINE SULFATE 2 MG/ML SYRINGE IV PRN ×3 (11:37→21:58)
--- NOTE | 2017-02-06 13:34 | PN ---
The patient is a 76-year-old admitted with right upper quadrant abdominal pain. There is possibility of cholecystitis and the patient was on Unasyn. Patient's pain improved significantly after the antibiotic and patient does not have any more fevers at this point of time. Will discuss with Dr. Rosario regarding possibility of cholecystectomy. REVIEW OF SYSTEMS: CARDIOVASCULAR: No chest pain, no orthopnea, no PND, no palpitations. PULMONARY: Denied any shortness of breath. No cough or hemoptysis. ABDOMEN: As described in HPI. NEUROLOGIC: No headaches, no weakness, no numbness. Medications were reviewed. PHYSICAL EXAMINATION: VITAL SIGNS: Temperature 97.7, pulse of 52, respiratory rate 16, blood pressure is 168/82, will just monitor and I will not start her on any antihypertensive medications. Patient is on antihypertensive medications , which I am holding at this time. Patient can be started on a lower dose of lisinopril. GENERAL: The patient is alert and oriented x3, not in any acute distress. Well developed, well nourished. HEENT: Pupils are round and equally reacting to light. EOMI. No scleral icterus. No conjunctival pallor. Normocephalic, atraumatic. No pharyngeal erythema. No thyromegaly. CARDIOVASCULAR: S1 and S2 present. No murmurs, rubs, or gallops. PULMONARY: Chest is clear to auscultation, no wheezing or crackles. ABDOMEN: Minimal right upper quadrant tenderness. No rebound or rigidity. Abdomen is soft. Bowel sounds are present. MUSCULOSKELETAL: No joint swelling or deformity. EXTREMITIES: No cyanosis, clubbing, or pedal edema. NEUROLOGICAL: Gross neurological examination did not reveal any focal deficits. SKIN: No rashes. LABORATORY DATA: CBC and CMP essentially within normal limits. ASSESSMENT AND PLAN: 1. Right upper quadrant abdominal pain and sepsis, probably due to cholecystitis. The patient does have gallbladder sludge, ( ). 2. Diabetes mellitus type 2. 3. Hypertension. 4. Hyperlipidemia. Further management as mentioned above. Continue the rest of her home medications for her chronic medical problems. Her blood sugars are on the lower normal side and patient is only on sliding scale insulin at this point of time. Patient is n.p.o. for possibility of surgery except for medications until Surgery evaluates the patient.
--- NOTE | 2017-02-06 15:20 | P.PN ---
Subjective 76-year-old female being seen continues to report having right upper quadrant pain. Family at bedside. Surgeon at bedside to discuss with the family and the patient the plan of care. Patient has elected to proceed with a laparoscopic cholecystectomy scheduled for February 07 Objective - Vital Signs Vital signs: Vital Signs Temp 97.7 F 02/06/17 07:00 Pulse 52 L 02/06/17 08:00 Resp 16 02/06/17 08:00 BP 186/82 02/06/17 07:00 Pulse Ox 99 02/06/17 07:00 Intake & Output 02/05/17 02/06/17 02/06/17 18:59 06:59 18:59 Intake Total 1036 1280 Output Total 800 Balance 236 1280 Weight 69.5 kg Intake: Intake, IV Titration 800 800 Amount Sodium Chloride 0.9% 1, 800 800 000 ml @ 100 mls/hr IV . Q10H JESSY Rx#:[id number] Oral 236 480 Output: Urine 800 Other: Voiding Method Toilet Toilet Toilet # Voids 2 3 1 # Bowel Movements 0 - Exam Physical exam 76-year-old female resting in bed continues to report having right abdominal pain Lungs essentially clear adequate air movement Heart S1-S2 audible and regular denying chest pain Abdomen soft tenderness to the right lower abdominal wall bowel tones present no nausea no vomiting Extremities no edema - Labs CBC & Chem 7: 02/06/17 08:25 02/06/17 08:25 Labs: Abnormal Lab Results - Last 24 Hours (Table) 02/05/17 02/06/17 Range/Units 20:50 08:25 Glucose 139 H (74-99) mg/dL POC Glucose (mg/dL) 121 H (75-99) mg/dL Assessment and Plan Plan: Impression Present on admission right upper quadrant pain unclear etiology Ultrasound of the gallbladder sludge noted with mild fatty infiltration Echocardiogram left ventricular systolic function normal EF between 55 and 60% Type 2 diabetes non-insulin Positive family history of gallbladder disease Plan Nothing by mouth after midnight scheduled for a laparoscopic cholecystectomy on February 07 Resume home meds as appropriate IV fluid for rehydration Pain control DVT and GI prophylaxis The above dictated assessment and findings were discussed with Marlene Sotomayor and the plan of care have been dictated as directed. Ronda Wolff nurse practitioner acting as a scribe for dr Rosario
[2017-02-06] MEDS: GABAPENTIN 100 MG CAP PO SCH ×2 (15:25→21:46)
[2017-02-06] MEDS: ASPIRIN 81 MG CHEW PO SCH (15:25)
[2017-02-06] MEDS: LISINOPRIL 10 MG TAB PO SCH (15:25)
[2017-02-06] MEDS: HEPARIN SODIUM,PORCINE 5,000 UNIT/ML 1 ML VIAL SQ SCH ×2 (17:26→23:38)
--- NOTE | 2017-02-06 19:42 | P.PN ---
Progress Note - Text Patient reevaluated this evening. She is tolerating coffee but still complains of right upper quadrant abdominal pain. Diagnostic images are consistent with gallbladder sludge and clinical systems of cholecystitis. I discussed with her anticipated surgical intervention for this Saturday. Her family is at bedside. Care plan and surgical options were described. Recommend low-fat diet in the interim with surgery to proceed on Saturday
[2017-02-06 20:47] LABS: Glucose,Whole Blood 105 mg/dL (75-99)
[2017-02-06] MEDS ORDERED: NON-FORMULARY DRUG (Travoprost [Travatan Z 0.004%] 1 DROP) BOTH EYES SCH (21:00)
[2017-02-06] MEDS: LATANOPROST 0.005% OPHTH DROPS 2.5 ML BTL BOTH EYES SCH (21:46)
[2017-02-07] MEDS: AMPICILLIN-SULBACTAM 3 GM in SODIUM CHLORIDE 0.9% 100 ML IVPB SCH ×4 (06:13→23:46)
[2017-02-07] MEDS: LEVOTHYROXINE 100 MCG TAB PO SCH (06:13)
[2017-02-07] MEDS: SODIUM CHLORIDE 0.9% 1,000 ML IV SCH ×5 (06:16→16:21)
[2017-02-07] MEDS: HEPARIN SODIUM,PORCINE 5,000 UNIT/ML 1 ML VIAL SQ SCH ×3 (07:51→23:47)
[2017-02-07] MEDS: LISINOPRIL 10 MG TAB PO SCH (07:51)
[2017-02-07] MEDS: ASPIRIN 81 MG CHEW PO SCH (07:51)
[2017-02-07] MEDS: MORPHINE SULFATE 2 MG/ML SYRINGE IV PRN ×4 (07:51→20:43)
[2017-02-07] MEDS: FAMOTIDINE 20 MG TAB PO SCH (07:51)
[2017-02-07] MEDS: GABAPENTIN 100 MG CAP PO SCH ×3 (07:51→20:46)
[2017-02-07] MEDS: ATORVASTATIN 20 MG TAB PO SCH (07:51)
[2017-02-07] MEDS: SERTRALINE 50 MG TAB PO SCH (07:51)
[2017-02-07 08:09] LABS: Basophils % (A) 0 %; Eosinophils # (A) 0.2 k/uL (0-0.7); Eosinophils % (A) 3 %; HCT 36.2 % (34.0-46.0); HDW 2.53; HGB 12.6 gm/dL (11.4-16.0); Luc # (Auto) 0.13; Luc % (Auto) 2; Lymphocytes # (A) 2.4 k/uL (1.0-4.8); Lymphocytes % (A) 35 %; MCH 28.6 pg (25.0-35.0); MCHC 34.9 g/dL (31.0-37.0); MCV 82.1 fL (80.0-100.0); Mean Platelet Volume 7.8; Monocytes # (A) 0.4 k/uL (0-1.0); Monocytes % (A) 6 %; Neutrophils # (A) 3.8 k/uL (1.3-7.7); Neutrophils % (A) 55 %; RBC 4.41 m/uL (3.80-5.40); RDW 13.5 % (11.5-15.5); WBC 6.9 k/uL (3.8-10.6); WBC (Perox) 7.12
[2017-02-07 08:45] LABS: Potassium 4.4 mmol/L (3.5-5.1); Total Bilirubin 0.7 mg/dL (0.2-1.3); Total Protein 6.3 g/dL (6.3-8.2)
[2017-02-07] MEDS: INSULIN LISPRO (humaLOG) 300 UNIT/3 ML VIAL SQ SCH ×4 (09:44→22:50)
[2017-02-07 12:33] LABS: Glucose,Whole Blood 80 mg/dL (75-99)
--- NOTE | 2017-02-07 13:30 | P.PN ---
Subjective 76-year-old female being seen on rounds. Patient continues to report having right upper quadrant abdominal pain. Patient states pain is unchanged. Patients being scheduled for surgical procedure tomorrow cholecystectomy. Diagnostic images were consistent with gallbladder sludge and clinical symptoms of cholecystitis. Objective - Vital Signs Vital signs: Vital Signs Temp 97.9 F 02/07/17 07:00 Pulse 54 L 02/07/17 08:00 Resp 16 02/07/17 08:00 BP 148/66 02/07/17 07:00 Pulse Ox 98 02/07/17 07:00 Intake & Output 02/06/17 02/07/17 02/07/17 18:59 06:59 18:59 Intake Total 1280 1150 480 Output Total 800 Balance 480 1150 480 Weight 69.5 kg 69.5 kg Intake: Intake, IV Titration 800 1150 Amount Ampicillin-Sulbactam 3 gm 200 In Sodium Chloride 0.9% 100 ml @ 100 mls/hr IVPB Q6HR JESSY Rx#:[id number] Sodium Chloride 0.9% 1, 800 950 000 ml @ 125 mls/hr IV . Q8H JESSY Rx#:[id number] Oral 480 480 Output: Urine 800 Other: Voiding Method Toilet Toilet Toilet # Voids 1 1 1 # Bowel Movements 0 - Exam Physical exam 76-year-old female resting in bed continues to report having right abdominal pain patient points to the right flank area as to the reference point Lungs essentially clear adequate air movement no shortness of breath Heart S1-S2 audible and regular denying chest pain Abdomen soft tenderness to the right lower abdominal wall bowel tones present no nausea no vomiting no stool Extremities no edema - Labs CBC & Chem 7: 02/07/17 07:33 02/07/17 07:33 Labs: Abnormal Lab Results - Last 24 Hours (Table) 02/06/17 02/07/17 Range/Units 20:27 07:33 Sodium 136 L (137-145) mmol/L BUN 35 H (7-17) mg/dL Creatinine 1.12 H (0.52-1.04) mg/dL Glucose 120 H (74-99) mg/dL POC Glucose (mg/dL) 105 H (75-99) mg/dL Microbiology - Last 24 Hours (Table) 02/05/17 16:00 Blood Culture - Preliminary Blood No Growth after 24 hours Assessment and Plan Plan: Impression Present on admission right upper quadrant pain unclear etiology Ultrasound of the gallbladder sludge noted with mild fatty infiltration Echocardiogram left ventricular systolic function normal EF between 55 and 60% Type 2 diabetes non-insulin Positive family history of gallbladder disease Plan Nothing by mouth after midnight scheduled for a laparoscopic cholecystectomy on February 07 Resume home meds as appropriate IV fluid for rehydration Pain control DVT and GI prophylaxis The above dictated assessment and findings were discussed with Marlene Impression and the plan of care have been dictated as directed. Ronda Wolff nurse practitioner acting as a scribe for dr Rosario
--- NOTE | 2017-02-07 16:55 | P.PN ---
Subjective Date of service 02/07/2017. Progress note being dictated for Dr. Duarte. Interval history: This a 76-year-old female admitted with right upper quadrant abdominal pain, and multiple other medical issues. Maintained on IV fluid hydration and Unasyn. Worsening renal function. Ultrasound of gallbladder reporting sludge within the gallbladder, scheduled for cholecystectomy Saturday. Denies nausea vomiting or diarrhea. No bowel movement. Denies chest pain, palpitations or increasing shortness of breath. Afebrile. On admission complaint of left-sided facial tingling and numbness, in a patient with history of multiple strokes. Evaluated by neurology, neuro workup negative, aspirin initiated. Brain CT did not report any acute intracranial abnormality. Carotid ultrasound reported no significant stenosis. Echo reported normal LV function, EF 55-60%. Denies facial numbness this morning. Objective - Vital Signs Vital signs: Vital Signs Temp 97.9 F 02/07/17 15:00 Pulse 54 L 02/07/17 15:19 Resp 16 02/07/17 15:19 BP 135/66 02/07/17 15:00 Pulse Ox 97 02/07/17 15:00 Intake & Output 02/06/17 02/07/17 02/07/17 18:59 06:59 18:59 Intake Total 1280 1150 720 Output Total 800 800 Balance 480 1150 -80 Weight 69.5 kg 69.5 kg 69.5 kg Intake: Intake, IV Titration 800 1150 Amount Ampicillin-Sulbactam 3 gm 200 In Sodium Chloride 0.9% 100 ml @ 100 mls/hr IVPB Q6HR JESSY Rx#:[id number] Sodium Chloride 0.9% 1, 800 950 000 ml @ 125 mls/hr IV . Q8H JESSY Rx#:[id number] Oral 480 720 Output: Urine 800 800 Other: Voiding Method Toilet Toilet Toilet # Voids 1 1 1 # Bowel Movements 0 0 - Exam PHYSICAL EXAM: VITAL SIGNS: As above GENERAL: [Sitting up in bed, holding support against her right upper quadrant] HEENT: [Pupils equal conjunctiva normal.] NECK: [Supple, no JVD] RESPIRATORY EFFORT:[Mildly increased] LUNGS: [Clear to auscultation, no wheezes rhonchi or crackles] CARDIOVASCULAR[regular S1 and S2, no murmurs rubs or gallops, no edema] GI: [Abdomen soft, nondistended right upper and lower quadrant tenderness, positive bowel sounds.] PSYCH: [Alert and oriented -3, mood and affect normal.] NEURO: [No focal deficits. Speech fluent and appropriate, no facial droop, tongue midline, moves all 4 extremities, strength and sensation grossly intact; of note is patient's mild right-sided residual weakness (which patient states is chronic)]. - Labs CBC & Chem 7: 02/07/17 07:33 02/07/17 07:33 Labs: Abnormal Lab Results - Last 24 Hours (Table) 02/06/17 02/07/17 Range/Units 20:27 07:33 Sodium 136 L (137-145) mmol/L BUN 35 H (7-17) mg/dL Creatinine 1.12 H (0.52-1.04) mg/dL Glucose 120 H (74-99) mg/dL POC Glucose (mg/dL) 105 H (75-99) mg/dL Microbiology - Last 24 Hours (Table) 02/05/17 16:00 Blood Culture - Preliminary Blood No Growth after 24 hours Assessment and Plan Plan: 1. [Acute right upper quadrant abdominal pain, exact etiology unclear; ultrasound positive for gallbladder sludge]. 2. [Possible Sepsis secondary to possible gallbladder sludge, gallbladder etiology]. 3. [Tingling and numbness of left side of face, evaluated by neurology, neuro workup negative]. Improving 4. [Hypothyroidism]. 5. [Hyperlipidemia]. 6. [Hypertension]. 7. [Diabetes mellitus]. Plan: Continue on current medication regime ,monitoring and symptomatic treatment. GI and DVT prophylaxis in place. Patient is scheduled for surgery tomorrow. Close monitoring of renal function with repeat labs ordered for a.m. further recommendations to follow. The impression and plan of care has been dictated as directed. : I performed a H&P examination of this patient and discussed the same with the dictator. I agree with the dictator's note. Any additional findings/opinions/ etc. will be noted.
[2017-02-07 17:58] LABS: Glucose,Whole Blood 104 mg/dL (75-99)
[2017-02-07] MEDS: LATANOPROST 0.005% OPHTH DROPS 2.5 ML BTL BOTH EYES SCH (20:44)
[2017-02-07 20:51] LABS: Glucose,Whole Blood 129 mg/dL (75-99)
[2017-02-07] MEDS: ACETAMINOPHEN TAB 325 MG TAB PO PRN (23:47)
[2017-02-08] MEDS ORDERED: ACETAMINOPHEN IV (For NPO) 1,000 MG in EMPTY BAG 1 BAG IVPB ONE (01:26)
--- NOTE | 2017-02-08 01:27 | P.HPADDEND ---
H&P Addendum H&P Addendum Date: 02/08/17 Benefits and risks of surgical intervention with a laparoscopic, cholecystectomy reviewed. Recommend overnight observation after surgery.
[2017-02-08] MEDS: AMPICILLIN-SULBACTAM 3 GM in SODIUM CHLORIDE 0.9% 100 ML IVPB SCH ×3 (05:43→18:36)
[2017-02-08] MEDS: MORPHINE SULFATE 2 MG/ML SYRINGE IV PRN ×2 (05:57→11:48)
[2017-02-08] MEDS: LEVOTHYROXINE 100 MCG TAB PO SCH (06:08)
[2017-02-08 07:39] LABS: Glucose,Whole Blood 130 mg/dL (75-99)
[2017-02-08] MEDS ORDERED: FAMOTIDINE 20 MG TAB PO SCH (09:00)
[2017-02-08 09:28] LABS: Anion Gap 12 mmol/L; Blood Urea Nitrogen 12 mg/dL (7-17); Calcium 8.6 mg/dL (8.4-10.2); Carbon Dioxide 23 mmol/L (22-30); Chloride 104 mmol/L (98-107); Glucose 109 mg/dL (74-99); Non-African American GFR(MDRD) >60 (>60 ml/min/1.73 sqM); Potassium 3.8 mmol/L (3.5-5.1); Sodium 139 mmol/L (137-145)
[2017-02-08 10:08] LABS: Basophils % (A) 0 %; CH 26.9; CHCM 32.2; Eosinophils # (A) 0.1 k/uL (0-0.7); Eosinophils % (A) 1 %; HCT 35.5 % (34.0-46.0); HDW 2.41; HGB 11.5 gm/dL (11.4-16.0); Luc # (Auto) 0.14; Luc % (Auto) 2; Lymphocytes # (A) 2.3 k/uL (1.0-4.8); Lymphocytes % (A) 24 %; MCH 27.2 pg (25.0-35.0); MCHC 32.4 g/dL (31.0-37.0); Mean Platelet Volume 7.9; Monocytes # (A) 0.8 k/uL (0-1.0); Monocytes % (A) 8 %; Neutrophils # (A) 6.2 k/uL (1.3-7.7); Neutrophils % (A) 65 %; RBC 4.22 m/uL (3.80-5.40); RDW 13.4 % (11.5-15.5); WBC 9.5 k/uL (3.8-10.6); WBC (Perox) 9.49
[2017-02-08] MEDS: INSULIN LISPRO (humaLOG) 300 UNIT/3 ML VIAL SQ SCH ×4 (11:46→22:32)
[2017-02-08] MEDS: GABAPENTIN 100 MG CAP PO SCH ×3 (11:47→20:52)
[2017-02-08 12:08] LABS: Glucose,Whole Blood 121 mg/dL (75-99)
[2017-02-08] MEDS ORDERED: MORPHINE SULFATE 4 MG/ML SYRINGE IVP STA (13:22)
--- NOTE | 2017-02-08 13:42 | P.PN ---
Progress Note - Text 76-year-old female being seen on rounds this morning patient is teary-eyed reports having persistent right upper quadrant pain. Patient is nothing by mouth is scheduled today for the lap cholecystectomy by surgical service. Optimize pain control. Patient did have an ultrasound of the gallbladder showing sludge within the gallbladder. Patient is on IV hydration and is aware the plan of care. Currently no family at the bedside this morning The surgeon did review with the patient plan of care going with the surgical options questions answers patient elected to proceed to undergo the laparoscopic cholecystectomy today The above dictated assessment and findings were discussed with dr Marlene Sotomayor and the plan of care have been dictated as directed. Ronda Wolff nurse practitioner acting as a scribe for Marlene
[2017-02-08] MEDS: ATORVASTATIN 20 MG TAB PO SCH (15:58)
[2017-02-08] MEDS: LISINOPRIL 10 MG TAB PO SCH (15:59)
[2017-02-08] MEDS: SERTRALINE 50 MG TAB PO SCH (15:59)
[2017-02-08] MEDS: ASPIRIN 81 MG CHEW PO SCH (16:13)
[2017-02-08] MEDS: SODIUM CHLORIDE 0.9% 1,000 ML IV SCH ×4 (16:13→18:35)
[2017-02-08] MEDS: HEPARIN SODIUM,PORCINE 5,000 UNIT/ML 1 ML VIAL SQ SCH ×3 (16:13→23:21)
--- NOTE | 2017-02-08 18:09 | P.PN ---
Subjective Date of service 02/08/2017. Progress note being dictated for Dr. Duarte. Interval history: This a 76-year-old female admitted with right upper quadrant abdominal pain, and multiple other medical issues. Maintained on IV fluid hydration and Unasyn. Renal function improved. Urine culture positive for E. coli .Awaiting cholecystectomy today. Denies nausea vomiting or diarrhea. Continues to have significant right upper quadrant abdominal pain, recently medicated with morphine. No bowel movement. Denies chest pain, palpitations or increasing shortness of breath. Afebrile. Objective - Vital Signs Vital signs: Vital Signs Temp 98.4 F 02/08/17 15:00 Pulse 70 02/08/17 16:00 Resp 18 02/08/17 16:00 BP 145/56 02/08/17 15:00 Pulse Ox 96 02/08/17 15:00 Intake & Output 02/07/17 02/08/17 02/08/17 18:59 06:59 18:59 Intake Total 720 0 Output Total 800 1600 Balance -80 -1600 Weight 69.5 kg 73.5 kg 73.5 kg Intake: Oral 720 0 Output: Urine 800 1600 Other: Voiding Method Toilet Bedside Commode Bedside Commode # Voids 1 1 2 # Bowel Movements 0 0 - Exam PHYSICAL EXAM: VITAL SIGNS: As above GENERAL: [Sitting up in bed, holding support against her right upper quadrant] HEENT: [Pupils equal conjunctiva normal.] NECK: [Supple, no JVD] RESPIRATORY EFFORT:[Mildly increased] LUNGS: [Clear to auscultation, no wheezes rhonchi or crackles] CARDIOVASCULAR[regular S1 and S2, no murmurs rubs or gallops, no edema] GI: [Abdomen soft, nondistended right upper and lower quadrant tenderness, positive bowel sounds.] PSYCH: [Alert and oriented -3, mood and affect normal.] NEURO: [No focal deficits. Speech fluent and appropriate, no facial droop, tongue midline, moves all 4 extremities, strength and sensation grossly intact - Labs CBC & Chem 7: 02/08/17 07:57 02/08/17 07:57 Labs: Abnormal Lab Results - Last 24 Hours (Table) 02/07/17 02/07/17 02/08/17 Range/Units 17:56 20:48 07:38 Glucose (74-99) mg/dL POC Glucose (mg/dL) 104 H 129 H 130 H (75-99) mg/dL 02/08/17 02/08/17 Range/Units 07:57 12:06 Glucose 109 H (74-99) mg/dL POC Glucose (mg/dL) 121 H (75-99) mg/dL Microbiology - Last 24 Hours (Table) 02/05/17 16:00 Blood Culture - Preliminary Blood No Growth after 48 hours Assessment and Plan Plan: 1. [Acute right upper quadrant abdominal pain, exact etiology unclear; ultrasound positive for gallbladder sludge]. 2. [Possible Sepsis secondary to possible gallbladder sludge, gallbladder etiology]. 3. [Tingling and numbness of left side of face, evaluated by neurology, neuro workup negative]. Improving 4. [Hypothyroidism]. 5. [Hyperlipidemia]. 6. [Hypertension]. 7. [Diabetes mellitus]. 8. Acute UTI with E. coli Plan: Continue on current medication regime , antibiotics, monitoring and symptomatic treatment. GI and DVT prophylaxis in place. Awaiting surgery today.further recommendations to follow. The impression and plan of care has been dictated as directed. : I performed a H&P examination of this patient and discussed the same with the dictator. I agree with the dictator's note. Any additional findings/opinions/ etc. will be noted.
[2017-02-08] MEDS: MORPHINE SULFATE 4 MG/ML SYRINGE IVP PRN ×2 (18:30→22:32)
[2017-02-08] MEDS: LATANOPROST 0.005% OPHTH DROPS 2.5 ML BTL BOTH EYES SCH (20:52)
[2017-02-08] MEDS: FAMOTIDINE 20 MG TAB PO SCH (20:52)
[2017-02-08] MEDS ORDERED: LEVOFLOXACIN 500MG-D5W PMX 500 MG in DEXTROSE/WATER 1 100ML.BAG IVPB SCH (21:00)
[2017-02-08] MEDS ORDERED: cloNIDine HCL 0.1 MG TAB PO PRN (21:59)
[2017-02-08] MEDS ORDERED: hydrALAZINE HCL 20 MG/ML 1 ML VIAL IVP PRN (21:59)
[2017-02-08 22:05] LABS: Glucose,Whole Blood 217 mg/dL (75-99)
[2017-02-08] MEDS: amLODIPine 5 MG TAB PO SCH (22:28)
[2017-02-09] MEDS: SODIUM CHLORIDE 0.9% 1,000 ML IV SCH ×3 (05:59→15:56)
[2017-02-09] MEDS: LEVOTHYROXINE 100 MCG TAB PO SCH (06:08)
[2017-02-09 07:35] LABS: Glucose,Whole Blood 133 mg/dL (75-99)
--- NOTE | 2017-02-09 07:48 | P.HPADDEND ---
H&P Addendum H&P Addendum Date: 02/08/17 Patient seen and elevated along with family members at bedside. Patient was scheduled to undergo laparoscopic cholecystectomy this afternoon however due to moderate delay in the operating room I spoke with the family personally. She has severe persistent right upper quadrant abdominal pain including findings consistent with cholecystitis. I offered surgical care with Dr. Duke. The family was willing to proceed with cholecystectomy with Dr. Duke. Arrangements will be made for surgical intervention for Saturday. Patient and family members demonstrated understanding of situation.
[2017-02-09] MEDS: INSULIN LISPRO (humaLOG) 300 UNIT/3 ML VIAL SQ SCH ×2 (07:57→12:54)
[2017-02-09] MEDS ORDERED: IV FLUID CONTINUATION 1,000 ML IV ONE (08:57)
[2017-02-09] MEDS: HEPARIN SODIUM,PORCINE 5,000 UNIT/ML 1 ML VIAL SQ SCH (09:02)
[2017-02-09] MEDS: fentaNYL (PF) 50 MCG/ML 2 ML AMP IV ONE ×2 (09:16→09:33)
[2017-02-09] MEDS ORDERED: ONDANSETRON 4 MG/2 ML VIAL IVP ONE (09:18)
[2017-02-09] MEDS ORDERED: METOCLOPRAMIDE 5 MG/ML 2 ML VIAL IVP ONE (09:20)
[2017-02-09] MEDS ORDERED: HEPARIN SODIUM,PORCINE 5,000 UNIT/ML 1 ML VIAL SQ ONE (09:32)
--- NOTE | 2017-02-09 09:35 | P.GSHP ---
History of Present Illness H&P Date: 02/09/17 Chief Complaint: RUQ pain 76 yrs old female presenting on 02/05/2017 with RUQ pain and discomfort. No naussea or vomiting. US showed sludge. WBC -normal . 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 - Review of Systems Comment: all negative except stated in [place] Past Medical History Past Medical History: CVA/TIA, Diabetes Mellitus, Hyperlipidemia, Hypertension, Osteoarthritis (OA), Thyroid Disorder Additional Past Medical History / Comment(s): residual - right sided weakness History of Any Multi-Drug Resistant Organisms: None Reported Past Surgical History: No Surgical Hx Reported Past Anesthesia/Blood Transfusion Reactions: No Reported Reaction Past Psychological History: No Psychological Hx Reported Smoking Status: Never smoker Past Alcohol Use History: None Reported Past Drug Use History: None Reported - Past Family History Father Family Medical History: Diabetes Mellitus Mother Family Medical History: Diabetes Mellitus Medications and Allergies Home Medications Medication Instructions Recorded Confirmed Type Gabapentin [Neurontin] 100 mg PO TID 02/04/17 02/04/17 History Latanoprost Ophth [Xalatan 0.005%] 1 drops BOTH EYES HS 02/04/17 02/04/17 History Levothyroxine Sodium [Synthroid] 100 mcg PO DAILY 02/04/17 02/04/17 History Lisinopril-Hctz 20-12.5 mg 1.5 tab PO DAILY 02/04/17 02/04/17 History [Zestoretic 20-12.5] Sertraline [Zoloft] 150 mg PO DAILY 02/04/17 02/04/17 History Simvastatin [Zocor] 40 mg PO DAILY 02/04/17 02/04/17 History Travoprost [Travatan Z 0.004%] 1 drop BOTH EYES HS 02/04/17 02/04/17 History metFORMIN HCL [Glucophage] 500 mg PO TID-W/MEALS 02/04/17 02/04/17 History Allergies Allergy/AdvReac Type Severity Reaction Status Date / Time No Known Allergies Allergy Verified 02/04/17 23:06 Surgical - Exam Vital Signs Temp Pulse Resp BP 98.0 F 72 20 199/97 02/04/17 21:34 02/04/17 21:34 02/04/17 21:34 02/04/17 21:34 General: Patient is alert and oriented to time, place and person and cooperative with exam Chest: Bilateral equal breath sounds present. Cardiovascular: Regular rate and rhythm. Abdomen: There is right upper quadrant tenderness. Results - Labs 02/08/17 07:57 02/08/17 07:57 Abnormal Lab Results - Last 24 Hours (Table) 02/08/17 02/08/17 02/08/17 Range/Units 07:57 12:06 22:03 Glucose 109 H (74-99) mg/dL POC Glucose (mg/dL) 121 H 217 H (75-99) mg/dL 02/09/17 Range/Units 07:34 Glucose (74-99) mg/dL POC Glucose (mg/dL) 133 H (75-99) mg/dL Microbiology - Last 24 Hours (Table) 02/05/17 16:00 Blood Culture - Preliminary Blood No Growth after 72 hours Diabetes panel 02/08/17 Range/Units 07:57 Sodium 139 (137-145) mmol/L Potassium 3.8 (3.5-5.1) mmol/L Chloride 104 (98-107) mmol/L Carbon Dioxide 23 (22-30) mmol/L BUN 12 (7-17) mg/dL Creatinine 0.67 (0.52-1.04) mg/dL Glucose 109 H (74-99) mg/dL Calcium 8.6 (8.4-10.2) mg/dL Calcium panel 02/08/17 Range/Units 07:57 Calcium 8.6 (8.4-10.2) mg/dL Pituitary panel 02/08/17 Range/Units 07:57 Sodium 139 (137-145) mmol/L Potassium 3.8 (3.5-5.1) mmol/L Chloride 104 (98-107) mmol/L Carbon Dioxide 23 (22-30) mmol/L BUN 12 (7-17) mg/dL Creatinine 0.67 (0.52-1.04) mg/dL Glucose 109 H (74-99) mg/dL Calcium 8.6 (8.4-10.2) mg/dL Adrenal panel 02/08/17 Range/Units 07:57 Sodium 139 (137-145) mmol/L Potassium 3.8 (3.5-5.1) mmol/L Chloride 104 (98-107) mmol/L Carbon Dioxide 23 (22-30) mmol/L BUN 12 (7-17) mg/dL Creatinine 0.67 (0.52-1.04) mg/dL Glucose 109 H (74-99) mg/dL Calcium 8.6 (8.4-10.2) mg/dL Assessment and Plan (1) Symptomatic cholelithiasis Status: Acute (2) Abdominal pain Status: Acute (3) History of stroke Status: Chronic Plan: Laparoscopic cholecystectomy and possible open. Informed consent obtained after explaining the risks, benefits and potential complications including bleeding, infection and patient elected to undergo the procedure
[2017-02-09] MEDS ORDERED: GLYCOPYRROLATE 0.2 MG/ML 2 ML VIAL ONE (09:38)
[2017-02-09] MEDS ORDERED: PROPOFOL 10 MG/ML 20 ML VIAL IV ONE (09:38)
[2017-02-09] MEDS ORDERED: KETOROLAC 30 MG/ML 1 ML VIAL ONE (09:38)
[2017-02-09] MEDS ORDERED: NEOSTIGMINE 1 MG/ML 10 ML VIAL ONE (09:38)
[2017-02-09] MEDS ORDERED: ROCURONIUM BROMIDE 10 MG/ML 10 ML VIAL IV ONE (09:38)
[2017-02-09] MEDS ORDERED: MIDAZOLAM 2 MG/2 ML VIAL ONE (09:38)
[2017-02-09] MEDS ORDERED: LIDOCAINE 1% INJ 10MG/ML (20 ML MDV) ONE (09:38)
[2017-02-09] MEDS ORDERED: ePHEDrine 50 MG/ML 1 ML AMP ONE (09:38)
[2017-02-09] MEDS ORDERED: SUCCINYLCHOLINE CHLORIDE VIAL 200 MG/10 ML VIAL IV ONE (09:38)
[2017-02-09] MEDS ORDERED: fentaNYL (PF) 50 MCG/ML 2 ML AMP ONE (09:38)
[2017-02-09] MEDS ORDERED: LACTATED RINGERS 1,000 ML IV ONE (09:53)
[2017-02-09] MEDS ORDERED: BUPIVACAIN-EPI 0.25%-1:200,000 30 ML VIAL SQ ONE ×2 (10:03)
--- NOTE | 2017-02-09 10:50 | P.OP ---
Date of Procedure: 02/09/17 Preoperative Diagnosis: RUQ pain Symptomatic cholelithiasis Type 2 DM H/O CVA Hypertension Hypothyroidism Postoperative Diagnosis: same Procedure(s) Performed: Laparoscopic cholecystectomy Anesthesia: JAGJIT, local Surgeon: Haven Duke Estimated Blood Loss (ml): 5 Pathology: other Condition: stable Disposition: PACU Indications for Procedure: 76 years old female with multiple comorbid conditions presenting with right upper quadrant pain. Ultrasound showed gallbladder sludge. informed consent obtained and patient elected to undergo laparoscopic cholecystectomy possible open. The risks, benefits and potential complications explained including bleeding, infection, inadvertent bile duct injury. Operative Findings: Distended gallbladder filled with sludge Description of Procedure: The patient was brought to the operating room and placed in supine position with both arms out. General anesthesia with endotracheal intubation was performed as per anesthesia team. Chlorhexidine was used to prep the abdomen followed by application of sterile drapes. A timeout was performed to verify correct patient and correct procedure. Patient was confirmed to receive perioperative IV antibiotics , heparin 5000 units subcutaneous injection and bilateral SCDs were placed. A 5 mm skin incision was made below the left costal margin at the anterior axillary line. A Veress needle was inserted and pneumoperitoneum was established to a pressure of 15 mmHg. A 5 mm Optiview trocar was loaded on a 5 mm 30 laparoscope and the peritoneal cavity was entered under direct vision using the Optiview technique. Additional 5 mm trocar was placed in the supraumbilical location and two 5 mm trocars along the right subcostal margin. The left 5 mm trocar was upsized to 10mm. The patient was placed in reverse Trendelenburg with right side up. The fundus of the gallbladder was grasped with an atraumatic grasper and was retracted over the dome of the liver. The infundibulum was grasped with an atraumatic grasper and retracted towards the pelvis to expose the Calot's triangle. Lateral and medial peritoneal attachment of the gallbladder bladder was dissected. Circumferential dissection was carried out around the cystic artery and the cystic duct to obtain adequate length for clip application. All the surrounding fibrofatty tissue were removed. Critical view was obtained with cystic duct and cystic artery as the only two structures entering the gallbladder. Two clips were applied on the patient's side and one on the specimen side on the cystic duct first followed by the cystic artery. Endoshears were used to divide the cystic duct and the cystic artery. The gallbladder was taken off the liver bed using a L-hook. It was placed in an endocatch specimen bag and removed through the 10mm port. The gallbladder was passed off as a specimen. The abdominal cavity was inspected. The clips on the cystic duct and cystic artery stump were intact and no bleeding noted from the liver bed. All the trocar sites were examined and no evidence of bleeding. The 10mm port site was closed with two transfascial sutures of 0 Vicryl using a Omar Milli device. The pneumoperitoneum was evacuated and all the trocars were removed. Local anesthetic was infiltrated along the trocar sites and incisions were closed using 4-0 Monocryl followed by application of Dermabond skin glue. The sponge, instrument and needle count were correct x2. Patient was extubated and taken to post anesthesia care unit in stable condition.
[2017-02-09 10:53] VITALS: RESP 16
[2017-02-09 11:00] LABS: Glucose,Whole Blood 135 mg/dL (75-99)
--- NOTE | 2017-02-09 11:02 | P.DS ---
Providers Date of admission: 02/05/17 00:32 Expected date of discharge: 02/09/17 Attending physician: Gabby Rosario Consults: 02/08/17 10:39 Consult Physician Urgent Consulting Provider: Analy Price Consult Reason/Comments: manager of financial Do you want consulting provider notified?: Yes Primary care physician: David Ace - Discharge Diagnosis(es) (1) Symptomatic cholelithiasis Current Visit: Yes Status: Acute (2) Abdominal pain Current Visit: Yes Status: Acute (3) History of stroke Current Visit: Yes Status: Chronic Hospital Course: 76 years old female presenting with right upper quadrant pain. Ultrasound showed gallstones. She underwent laparoscopic cholecystectomy. Patient had urinary tract infection at presentation. Urine culture positive for E. coli. She also has multiple comorbid conditions including type 2 diabetes mellitus, hypertension, hyperlipidemia, history of stroke with some residual right-sided weakness. Neurology was consulted during this hospital admission for left- sided facial weakness. Aspirin 325 mg by mouth daily was recommended. This can be resumed on 02/10/2017. Patient was started on clear liquid diet and advance as tolerated in the postoperative period. Procedures: laparoscopic cholecystectomy Patient Condition at Discharge: Fair Plan - Discharge Summary New Discharge Prescriptions: Docusate [Colace] 100 mg PO BID #30 capsule Hydrocodone/Acetaminophen [Cerrillos 5-325] 1 each PO Q6HR PRN #20 tab PRN Reason: Pain Discharge Medication List Gabapentin [Neurontin] 100 mg PO TID 02/04/17 [History] Latanoprost Ophth [Xalatan 0.005%] 1 drops BOTH EYES HS 02/04/17 [History] Levothyroxine Sodium [Synthroid] 100 mcg PO DAILY 02/04/17 [History] Lisinopril-Hctz 20-12.5 mg [Zestoretic 20-12.5] 1.5 tab PO DAILY 02/04/17 [ History] Sertraline [Zoloft] 150 mg PO DAILY 02/04/17 [History] Simvastatin [Zocor] 40 mg PO DAILY 02/04/17 [History] Travoprost [Travatan Z 0.004%] 1 drop BOTH EYES HS 02/04/17 [History] metFORMIN HCL [Glucophage] 500 mg PO TID-W/MEALS 02/04/17 [History] Docusate [Colace] 100 mg PO BID #30 capsule 02/09/17 [Rx] Hydrocodone/Acetaminophen [Cerrillos 5-325] 1 each PO Q6HR PRN #20 tab 02/09/17 [Rx] Follow up Appointment(s)/Referral(s): Haven Duke MD [STAFF PHYSICIAN] - 02/19/17 David Ace MD [Primary Care Provider] - 1-2 days Activity/Diet/Wound Care/Special Instructions: OK to shower . No soaking bath. No heavy lifting more than 10 lbs for 6 weeks post surgery. No driving while taking narcotics for pain. May use ice packs for local pain relief Take Motrin 200 mg po TID after meals if pain is not controlled Use incentive spireometry 10 times an hour while awake OK to take aspirin 325 mg po daily starting 02/10/2017 - as recommended by Neurology Discharge Disposition: HOME SELF-CARE
[2017-02-09] MEDS ORDERED: hydrALAZINE HCL 20 MG/ML 1 ML VIAL IVP ONE (11:09)
[2017-02-09 11:18] VITALS: PULSE 81
[2017-02-09] MEDS: GABAPENTIN 100 MG CAP PO SCH (11:45)
[2017-02-09] MEDS: ATORVASTATIN 20 MG TAB PO SCH (11:45)
[2017-02-09] MEDS: ASPIRIN 81 MG CHEW PO SCH (11:45)
[2017-02-09] MEDS: FAMOTIDINE 20 MG TAB PO SCH (11:45)
[2017-02-09 11:48] VITALS: BP 120/57; TEMP 97.9
[2017-02-09] MEDS: LISINOPRIL 10 MG TAB PO SCH (11:57)
[2017-02-09] MEDS: amLODIPine 5 MG TAB PO SCH (11:57)
[2017-02-09] MEDS: SERTRALINE 50 MG TAB PO SCH (12:53)
--- NOTE | 2017-02-09 16:10 | PN ---
DATE OF SERVICE: 02/09/2017 This 76-year-old woman who was admitted with right upper quadrant abdominal pain as well as symptomatic cholelithiasis underwent laparoscopic cholecystectomy by Dr. Duke. The patient being closely monitored. Patient also had evidence of UTI with E. Coli. There was no chest pain, palpitation. No fever. On exam, alert and oriented x3. Pulse 81, blood pressure 120/57, respirations 16, temperature 97.9, pulse ox 92% on room air. HEENT: Conjunctivae normal. NECK: No jugular venous distention. CARDIOVASCULAR: S1 and S2, muffled. RESPIRATORY: Breath sounds diminished at the bases. No rhonchi or crackles. ABDOMEN: Soft, status post surgery. LEGS: No edema, no swelling. NERVOUS SYSTEM: No focal deficits. LABS: ac 217, 133, 135. Other labs are noted. ASSESSMENT: 1. Symptomatic cholelithiasis, status post laparoscopic cholecystectomy with sepsis possibly. 2. Urinary tract infection with Escherichia coli. 3. Tingling and numbness of the left side of the face, evaluated, neurology workup negative. 4. Hypothyroidism. 5. Hyperlipidemia. 6. Hypertension. 7. Diabetes mellitus type 2. RECOMMENDATIONS AND DISCUSSION: Recommend to continue current medications. Continue symptomatic treatment. I would recommend baby aspirin and as well as short course of antibiotics and closely follow with Dr. Ace and continue to follow up all the above mentioned medical issues and the rest of the recommendations per Dr. Duke. [facility]
== END 2017-02-09 17:10 | disposition home or self-care (01) | DRG 854 ==
LOC: EC 21:26 → 6SEL 02-05 00:32 → OBSVTOIN 02-05 00:32 → 5MS5E 02-05 21:18
PROVIDERS: ADMIT Surgery Plastic and Reconstructive Surgery; ATTEND Surgery Plastic and Reconstructive Surgery
PROC: 0FT44ZZ Resection of Gallbladder, Percutaneous Endoscopic Approach (ICD-10-PCS; principal; 2017-02-09 09:30)
DX: A41.9 Sepsis, unspecified organism (principal); I69.351 Hemiplegia and hemiparesis following cerebral infarction affecting right dominant side; N39.0 Urinary tract infection, site not specified; K57.92 Diverticulitis of intestine, part unspecified, without perforation or abscess without bleeding; K80.10 Calculus of gallbladder with chronic cholecystitis without obstruction; E11.9 Type 2 diabetes mellitus without complications; B96.20 Unspecified Escherichia coli [E. coli] as the cause of diseases classified elsewhere; I10 Essential (primary) hypertension; E03.9 Hypothyroidism, unspecified; E78.5 Hyperlipidemia, unspecified; Z79.899 Other long term (current) drug therapy; Z79.84 Long term (current) use of oral hypoglycemic drugs
CPT/HCPCS: 36415; 51798; 70450; 71020; 74177; 76705; 80048; 80053; 81001; 82150; 83036; 83690; 85025; 85027; 85610; 85730; 87040; 87077; 87086; 87186; 88304; 93306; 93880; 96374; 99285

== ENCOUNTER 2019-02-20 06:58 | Observation (INO) | payer MEDICARE, BC ==
[2019-02-20] MEDS ORDERED: NITROGLYCERIN SL TABS 0.4 MG TAB SUBLINGUAL STA ×3 (07:16)
[2019-02-20] MEDS ORDERED: ASPIRIN 81 MG PO STA (07:16)
--- NOTE | 2019-02-20 07:19 | ED ---
General Adult HPI - General Chief complaint: Chest Pain Stated complaint: Chest discomfort Time Seen by Provider: 02/20/19 07:12 Source: patient, family, RN notes reviewed Mode of arrival: wheelchair Limitations: no limitations - History of Present Illness Initial comments: Patient is a pleasant 78-year-old female presenting to the emergency Department with chest discomfort. Symptoms have been waxing and waning over the past 2-3 days. Discomfort is somewhat severe at this time. Discomfort feels somewhat sharp. Discomfort is left chest and under her left breast. Patient has some associated dyspnea. No nausea or diaphoresis. No history of similar symptoms previously. - Related Data Home Medications Medication Instructions Recorded Confirmed Gabapentin [Neurontin] 100 mg PO TID 02/04/17 02/04/17 Latanoprost Ophth [Xalatan 0.005%] 1 drops BOTH EYES HS 02/04/17 02/04/17 Levothyroxine Sodium [Synthroid] 100 mcg PO DAILY 02/04/17 02/04/17 Lisinopril-Hctz 20-12.5 mg 1.5 tab PO DAILY 02/04/17 02/04/17 [Zestoretic 20-12.5] Sertraline [Zoloft] 150 mg PO DAILY 02/04/17 02/04/17 Simvastatin [Zocor] 40 mg PO DAILY 02/04/17 02/04/17 Travoprost [Travatan Z 0.004%] 1 drop BOTH EYES HS 02/04/17 02/04/17 metFORMIN HCL [Glucophage] 500 mg PO TID-W/MEALS 02/04/17 02/04/17 Previous Rx's Medication Instructions Recorded Aspirin 81 mg PO DAILY #30 chew 02/09/17 Docusate [Colace] 100 mg PO BID #30 capsule 02/09/17 Hydrocodone/Acetaminophen [Mathews 1 each PO Q6HR PRN #20 tab 02/09/17 5-325] amLODIPine [Norvasc] 5 mg PO DAILY #30 tab 02/09/17 Allergies Allergy/AdvReac Type Severity Reaction Status Date / Time No Known Allergies Allergy Verified 02/20/19 07:06 Review of Systems ROS Statement: Those systems with pertinent positive or pertinent negative responses have been documented in the HPI. ROS Other: All systems not noted in ROS Statement are negative. Constitutional: Denies: fever Eyes: Denies: eye pain ENT: Denies: ear pain Respiratory: Reports: dyspnea. Denies: cough Cardiovascular: Reports: chest pain Endocrine: Denies: fatigue Gastrointestinal: Reports: abdominal pain (Patient states side discomfort however points to the area of the left breast.) Genitourinary: Denies: dysuria Musculoskeletal: Denies: back pain Skin: Denies: rash Neurological: Denies: weakness Past Medical History Past Medical History: CVA/TIA, Diabetes Mellitus, Hyperlipidemia, Hypertension, Osteoarthritis (OA), Thyroid Disorder Additional Past Medical History / Comment(s): residual - right sided weakness History of Any Multi-Drug Resistant Organisms: None Reported Past Surgical History: No Surgical Hx Reported Past Anesthesia/Blood Transfusion Reactions: No Reported Reaction Past Psychological History: No Psychological Hx Reported Smoking Status: Never smoker Past Alcohol Use History: None Reported Past Drug Use History: None Reported - Past Family History Father Family Medical History: Diabetes Mellitus Mother Family Medical History: Diabetes Mellitus General Exam Limitations: no limitations General appearance: alert, in no apparent distress Head exam: Present: atraumatic Eye exam: Present: normal appearance Neck exam: Present: normal inspection Respiratory exam: Present: normal lung sounds bilaterally. Absent: chest wall tenderness Cardiovascular Exam: Present: regular rate, normal rhythm Expanded Peripheral pulses: 2+: Radial (R), Radial (L), Dorsalis Pedis (R), Dorsalis Pedis (L) GI/Abdominal exam: Present: soft. Absent: tenderness Extremities exam: Present: normal inspection. Absent: pedal edema, calf tenderness Neurological exam: Present: alert Psychiatric exam: Present: normal affect, normal mood Skin exam: Present: normal color Course Vital Signs 02/20/19 02/20/19 07:00 08:00 Temperature 98 F Pulse Rate 54 L 54 L Respiratory 18 18 Rate Blood Pressure 200/71 176/76 O2 Sat by Pulse 99 99 Oximetry EKG Findings - EKG Comments: EKG Findings:: Since bradycardia 53. AL 152. QRS 80. QT 454. QTC 426. Normal axis. Normal QRS. No acute ST change. Medical Decision Making - Medical Decision Making Patient reevaluated and resting comfortably in bed. Patient states that much im provement with nitroglycerin. Patient and family updated on results and plan. Case was discussed in detail with Dr. Acosta, who will admit covering for hospital call. Abdomen remains soft and nontender. - Lab Data Result diagrams: 02/20/19 07:35 02/20/19 07:35 Lab Results 02/20/19 02/20/19 02/20/19 Range/Units 07:35 07:35 07:35 WBC 7.0 (3.8-10.6) k/uL RBC 4.18 (3.80-5.40) m/uL Hgb 11.6 (11.4-16.0) gm/dL Hct 35.0 (34.0-46.0) % MCV 83.7 (80.0-100.0) fL MCH 27.8 (25.0-35.0) pg MCHC 33.2 (31.0-37.0) g/dL RDW 13.8 (11.5-15.5) % Plt Count 228 (150-450) k/uL Neutrophils % 35 % Lymphocytes % 53 % Monocytes % 4 % Eosinophils % 4 % Basophils % 0 % Neutrophils # 2.5 (1.3-7.7) k/uL Lymphocytes # 3.7 (1.0-4.8) k/uL Monocytes # 0.3 (0-1.0) k/uL Eosinophils # 0.3 (0-0.7) k/uL Basophils # 0.0 (0-0.2) k/uL PT 9.6 (9.0-12.0) sec INR 0.9 (<1.2) APTT 25.5 (22.0-30.0) sec D-Dimer 0.72 H (<0.60) mg/L FEU Sodium 140 (137-145) mmol/L Potassium 4.0 (3.5-5.1) mmol/L Chloride 106 (98-107) mmol/L Carbon Dioxide 29 (22-30) mmol/L Anion Gap 5 mmol/L BUN 17 (7-17) mg/dL Creatinine 0.60 (0.52-1.04) mg/dL Est GFR (CKD-EPI)AfAm >90 (>60 ml/min/1.73 sqM) Est GFR (CKD-EPI)NonAf 87 (>60 ml/min/1.73 sqM) Glucose 101 H (74-99) mg/dL Calcium 9.6 (8.4-10.2) mg/dL Magnesium 1.9 (1.6-2.3) mg/dL Total Bilirubin 0.3 (0.2-1.3) mg/dL AST 19 (14-36) U/L ALT 25 (9-52) U/L Alkaline Phosphatase 83 (38-126) U/L Troponin I (0.000-0.034) ng/mL NT-Pro-B Natriuret Pep pg/mL Total Protein 7.0 (6.3-8.2) g/dL Albumin 4.3 (3.5-5.0) g/dL 02/20/19 02/20/19 Range/Units 07:35 07:35 WBC (3.8-10.6) k/uL RBC (3.80-5.40) m/uL Hgb (11.4-16.0) gm/dL Hct (34.0-46.0) % MCV (80.0-100.0) fL MCH (25.0-35.0) pg MCHC (31.0-37.0) g/dL RDW (11.5-15.5) % Plt Count (150-450) k/uL Neutrophils % % Lymphocytes % % Monocytes % % Eosinophils % % Basophils % % Neutrophils # (1.3-7.7) k/uL Lymphocytes # (1.0-4.8) k/uL Monocytes # (0-1.0) k/uL Eosinophils # (0-0.7) k/uL Basophils # (0-0.2) k/uL PT (9.0-12.0) sec INR (<1.2) APTT (22.0-30.0) sec D-Dimer (<0.60) mg/L FEU Sodium (137-145) mmol/L Potassium (3.5-5.1) mmol/L Chloride (98-107) mmol/L Carbon Dioxide (22-30) mmol/L Anion Gap mmol/L BUN (7-17) mg/dL Creatinine (0.52-1.04) mg/dL Est GFR (CKD-EPI)AfAm (>60 ml/min/1.73 sqM) Est GFR (CKD-EPI)NonAf (>60 ml/min/1.73 sqM) Glucose (74-99) mg/dL Calcium (8.4-10.2) mg/dL Magnesium (1.6-2.3) mg/dL Total Bilirubin (0.2-1.3) mg/dL AST (14-36) U/L ALT (9-52) U/L Alkaline Phosphatase (38-126) U/L Troponin I <0.012 (0.000-0.034) ng/mL NT-Pro-B Natriuret Pep 526 pg/mL Total Protein (6.3-8.2) g/dL Albumin (3.5-5.0) g/dL - Radiology Data Radiology results: image reviewed (Abdominal x-ray reveals nonspecific abdomen. Chest x-ray shows low lung volumes with mild pulmonary vascular congestion.) Disposition Clinical Impression: Chest pain Disposition: ADMITTED IP TO THIS HOSP Is patient prescribed a controlled substance at d/c from ED?: No Referrals: David Ace MD [Primary Care Provider] - 1-2 days Decision Time: 08:54
[2019-02-20 07:49] LABS: Basophils % (A) 0 %; Eosinophils # (A) 0.3 k/uL (0-0.7); Eosinophils % (A) 4 %; HGB 11.6 gm/dL (11.4-16.0); Lymphocytes # (A) 3.7 k/uL (1.0-4.8); Lymphocytes % (A) 53 %; MCH 27.8 pg (25.0-35.0); MCHC 33.2 g/dL (31.0-37.0); MCV 83.7 fL (80.0-100.0); Mean Platelet Volume 7.3; Monocytes # (A) 0.3 k/uL (0-1.0); Monocytes % (A) 4 %; Neutrophils # (A) 2.5 k/uL (1.3-7.7); Neutrophils % (A) 35 %; Platelet Count 228 k/uL (150-450); RBC 4.18 m/uL (3.80-5.40); RDW 13.8 % (11.5-15.5)
[2019-02-20 07:59] LABS: ALT 25 U/L (9-52); AST 19 U/L (14-36); Albumin 4.3 g/dL (3.5-5.0); Alkaline Phosphatase 83 U/L (38-126); Anion Gap 5 mmol/L; Blood Urea Nitrogen 17 mg/dL (7-17); Calcium 9.6 mg/dL (8.4-10.2); Carbon Dioxide 29 mmol/L (22-30); Chloride 106 mmol/L (98-107); Glucose 101 mg/dL (74-99); Magnesium 1.9 mg/dL (1.6-2.3); Sodium 140 mmol/L (137-145); Total Bilirubin 0.3 mg/dL (0.2-1.3)
[2019-02-20 08:03] LABS: INR 0.9 (<1.2); Partial Thromboplastin Time 25.5 sec (22.0-30.0); Prothrombin Time 9.6 sec (9.0-12.0)
[2019-02-20 08:24] LABS: D-Dimer 0.72 mg/L FEU (<0.60)
--- NOTE | 2019-02-20 08:39 | XR ---
EXAMINATION TYPE: XR chest 2V DATE OF EXAM: 02/20/2019 COMPARISON: 02/05/2017 HISTORY: Chest pain, left-sided pain, left arm pain TECHNIQUE: Frontal and lateral views of the chest are obtained. FINDINGS: There is no focal air space opacity, pleural effusion, or pneumothorax seen. Mild pulmonar y vascular congestion is seen, exaggerated by low lung volumes. The cardiac silhouette size is within normal limits. The osseous structures are intact. IMPRESSION: Low lung volumes exaggerate the mild pulmonary vascular congestion. No focal consolidati on to suggest pneumonia.
--- NOTE | 2019-02-20 08:44 | XR ---
EXAMINATION TYPE: XR abdomen 1V DATE OF EXAM: 02/20/2019 8:03 AM CLINICAL HISTORY: Chest pain and left-sided abdominal pain and arm pain TECHNIQUE: Single supine KUB image of the abdomen is obtained. COMPARISON: 04/24/2011. FINDINGS: Scattered gas is seen in nondilated small bowel loops. Gas and fecal material is seen in no ndilated colon. There is no visceromegaly, pneumoperitoneum, or abnormal calcification appreciated. P ostsurgical changes are seen within the pelvis. The lung bases are clear and the osseous structures a re intact. Cholecystectomy clips are seen. Diffuse osseous demineralization is seen with degenerative changes of the femoral acetabular joints, spine and sacroiliac joints. IMPRESSION: Nonobstructive bowel gas pattern.
[2019-02-20] MEDS ORDERED: MORPHINE SULFATE 4 MG/ML SYRINGE IV STA (08:54)
[2019-02-20] MEDS ORDERED: NITROGLYCERIN SL TABS 0.4 MG TAB SUBLINGUAL PRN (08:54)
[2019-02-20 10:49] VITALS: BMI 26.4
[2019-02-20] MEDS ORDERED: NITROGLYCERIN OINT 1 INCH/GM PACKET TOPICAL SCH (12:00)
[2019-02-20 12:09] VITALS: RESP 18
[2019-02-20] MEDS ORDERED: ENOXAPARIN 60 MG/0.6 ML SYRINGE SQ SCH (13:15)
[2019-02-20] MEDS: SODIUM CHLORIDE 0.9% 1,000 ML IV SCH (13:26)
--- NOTE | 2019-02-20 13:45 | CT ---
EXAMINATION TYPE: CT angio chest DATE OF EXAM: 02/20/2019 1:25 PM COMPARISON: 04/24/2000 HISTORY: chest pain CT DLP: 296.2 mGycm Automated exposure control for dose reduction was used. CONTRAST: CTA scan of the thorax is performed with IV Contrast, patient injected with 100 mL of Isovue 370, pul monary embolism protocol. . FINDINGS: LUNGS: The lungs are grossly clear, there is no concerning parenchymal mass or nodule identified. T here is no pleural effusion or pneumothorax seen. The tracheobronchial tree is patent. Subsegmental changes posteriorly are most typical of atelectasis. There may be a slight interlobular septal thicke jose and chronic interstitial lung disease. All focal areas of paraseptal emphysema are noted. Image 96 there is a 2 mm right lower lobe pulmonary nodule which appears calcified compatible with a granul jarrod. MEDIASTINUM: There is satisfactory enhancement of the pulmonary artery and its branches, there is no CT evidence for pulmonary embolism. There are no greater than 1 cm hilar or mediastinal lymph nodes. No pericardial effusion is seen. Atherosclerotic change aorta with cardiomegaly and coronary arter y atherosclerotic changes are seen. Suboptimal opacification of the aorta. The heart is markedly enla rged. OTHER: Splenic granuloma are noted. There is hepatic granuloma. Previous gallbladder surgery noted. Hypertrophic and degenerative changes of the spine noted there is be artifact in the region of the po rta hepatis IMPRESSION: 1. Severe cardiomegaly correlate for mild central venous congestion. 2. Basilar atelectasis favored over infiltrate. 3. No evidence of central pulmonary embolism. 4. Hyperdensity in the region of pauline hepatis is most likely artifactual. Correlate clinically corre lated with hemoglobin level exclude anemia. Unlikely this represents an area of small focus of hemorr donald. Artifact is highly favored. 5. Probable tiny granuloma medial aspect right lung base image 96.
--- NOTE | 2019-02-20 16:28 | P.HPIM ---
History of Present Illness H&P Date: 02/20/19 Chief Complaint: Chest pain 78-year-old female with PMH of CVA with left-sided residual weakness, diabetes, hypertension, hyperlipidemia and hypothyroidism presents the ED for chest pain. Patient reports chest pain, left-sided as she was vacuuming on Saturday morning. Patient reports chest pain as stabbing in nature, 10 out of 10 in severity, intermittent lasting minutes at a time radiates to the back and the left arm. Patient reports that the pain got progressively worse, prompting her to come to the ED. Pain is aggravated with movement of the left shoulder. Patient complains of headache that started while in the ED. She did receive nitroglycerin. Patient with a mild lower extremity edema that is alleviated with elevation. She denies any nausea, vomiting, fever, chills, cough, shortness of breath, palpitations, changes in urination or bowel habits. No adriana nges in appetite or weight. Patient denies dizziness, numbness/weakness/tingling of the extremities. In the ED, vital signs are stable. CBC was unremarkable. Coagulation panel was negative. D-dimer was elevated at 0.72. CMP was unremarkable except for glucose of 101. Troponin was less than 0.0122 with EKG showing sinus bradycardia. BNP was 526. Chest x-ray was negative. Chest CTA was performed due to elevated d-dimer to rule out PE, which showed severe cardiomegaly, hyperdensity in the pauline hepatis most likely artifactual, tiny granuloma in the medial aspect of the right lung base, no PE. Patient is admitted for chest pain, rule out acute coronary syndrome, cardiology consult. Review of Systems All systems: negative Past Medical History Past Medical History: CVA/TIA, Diabetes Mellitus, Eye Disorder, Fibromyalgia, Hyperlipidemia, Hypertension, Osteoarthritis (OA), Thyroid Disorder Additional Past Medical History / Comment(s): CVA with some L sided weakness, NIDDM type II, neuropathy bilateral hands, arthritis in legs bilaterally, bilateral eye glaucoma, hypothyroid, pt recently had corn removed from her foot. History of Any Multi-Drug Resistant Organisms: None Reported Past Surgical History: Cholecystectomy Past Anesthesia/Blood Transfusion Reactions: No Reported Reaction Past Psychological History: Depression Additional Psychological History / Comment(s): Pt resides with her daughter and daughter's family. She uses a walker prn. She no longer drives. Her daughter takes her to [employer]. Pt manages her own medications. Smoking Status: Never smoker Past Alcohol Use History: None Reported Past Drug Use History: None Reported - Past Family History Father Family Medical History: No Reported History Additional Family Medical History / Comment(s): Father was healthy. Mother Family Medical History: Diabetes Mellitus Medications and Allergies Home Medications Medication Instructions Recorded Confirmed Type Gabapentin [Neurontin] 100 mg PO TID 02/04/17 02/20/19 History Latanoprost Ophth [Xalatan 0.005%] 1 drop BOTH EYES HS 02/04/17 02/20/19 History Levothyroxine Sodium [Synthroid] 100 mcg PO DAILY 02/04/17 02/20/19 History Lisinopril-Hctz 20-12.5 mg 1.5 tab PO DAILY 02/04/17 02/20/19 History [Zestoretic 20-12.5] Simvastatin [Zocor] 40 mg PO DAILY 02/04/17 02/20/19 History Travoprost [Travatan Z 0.004%] 1 drop BOTH EYES HS 02/04/17 02/20/19 History metFORMIN HCL [Glucophage] 500 mg PO TID-W/MEALS 02/04/17 02/20/19 History Aspirin 81 mg PO DAILY #30 chew 02/09/17 02/20/19 Rx Acetaminophen [Tylenol Arthritis] 650 mg PO Q6H PRN 02/20/19 02/20/19 History Cholecalciferol [Vitamin D3] 1,000 unit PO DAILY 02/20/19 02/20/19 History Docusate [Colace] 100 mg PO DAILY 02/20/19 02/20/19 History Metoprolol Succinate [Toprol Xl] 50 mg PO DAILY 02/20/19 02/20/19 History Real Tears 2 drops BOTH EYES QID 02/20/19 02/20/19 History Sertraline HCl [Zoloft] 200 mg PO DAILY 02/20/19 02/20/19 History Allergies Allergy/AdvReac Type Severity Reaction Status Date / Time No Known Allergies Allergy Verified 02/20/19 09:23 Physical Exam Vitals: Vital Signs Temp Pulse Pulse Resp BP BP Pulse Ox 02/20/19 14:20 98.0 F 51 L 18 175/72 95 02/20/19 13:19 98.4 F 59 L 18 155/69 96 02/20/19 12:00 48 L 18 161/85 96 02/20/19 11:00 52 L 19 182/71 98 02/20/19 09:00 98.2 F 52 L 18 164/72 99 02/20/19 08:00 54 L 18 176/76 99 02/20/19 07:00 98 F 54 L 18 200/71 99 Intake and Output 02/20/19 02/20/19 02/20/19 06:59 14:59 22:59 Other: Voiding Method Toilet Weight 67.585 kg General: [non toxic], [no distress], [appears at stated age] Derm: [warm], [dry] Head: [atraumatic], [normocephalic], [symmetric] Eyes: [EOMI], [no lid lag], [anicteric sclera] Mouth: [no lip lesion], [mucus membranes moist] Cardiovascular: [S1S2 reg], [no murmur], [positive DP pulse bilateral], Lungs: [CTA bilateral], [no rhonchi, no rales] , [no accessory muscle use] Abdominal: [soft], [ nontender to palpation], [no guarding], [no appreciable organomegaly] Ext: [no gross muscle atrophy], [no edema], [no contractures], [limited range of motion of left shoulder due to pain, tenderness to palpation of the left chest wall] Neuro: [ CN II-XI grossly intact], [no focal neuro deficits] Psych: [Alert], [oriented], [appropriate affect] Results CBC & Chem 7: 02/20/19 07:35 02/20/19 07:35 Labs: Abnormal Lab Results - Last 24 Hours (Table) 02/20/19 02/20/19 Range/Units 07:35 07:35 D-Dimer 0.72 H (<0.60) mg/L FEU Glucose 101 H (74-99) mg/dL Thrombosis Risk Factor Assmnt - Choose All That Apply Any of the Below Risk Factors Present?: Yes Each Factor Represents 1 point: Obesity (BMI >25) Other Risk Factors: Yes Each Risk Factor Represents 3 Points: Age 75 years or older Other congenital or acquired thrombophilia - If yes, enter type in comment: No Thrombosis Risk Factor Assessment Total Risk Factor Score: 4 Thrombosis Risk Factor Assessment Level: Moderate Risk Assessment and Plan Assessment: Assessment and Plan Chest pain, likely musculoskeletal, rule out ACS Hypertension Diabetes mellitus Glaucoma Hypothyroidism Troponin less than 0.0122, EKG showing sinus bradycardia. Chest x-ray negative for acute process. Elevated d-dimer, CTA rules out PE. Trend Trop/EKG to rule out ACS. Pain management with Toradol IV. Continue aspirin, Lipitor. Continue metoprolol. Telemetry monitoring. Follow cardiology consult. Follow echocardiogram. BP 175/72. Continue lisinopril and hydrochlorothiazide. Continue metoprolol. Monitor vitals, adjust medications as necessary. [id number] glucose 101. Regular Accu-Cheks. Hypoglycemic precautions. Continue latanoprost. Continue Synthroid. Patient admitted for chest pain, rule out acute coronary syndrome, cardiology on consult. Likely DC in 1-2 days.
[2019-02-20 16:40] LABS: Glucose,Whole Blood 127 mg/dL (75-99)
[2019-02-20] MEDS: GABAPENTIN 100 MG CAP PO SCH ×2 (17:19→22:14)
[2019-02-20] MEDS: KETOROLAC 30 MG/ML 1 ML VIAL IVP SCH ×2 (17:19→23:47)
--- NOTE | 2019-02-20 18:11 | CONS ---
CONSULTATION DATE OF SERVICE: This is a 78-year-old lady who is from [place] and sees Dr. David Ace. She came into the emergency room with complaints of chest discomfort, waxing and waning for the past 2-3 days. Discomfort is sharp in nature, it comes and goes, lasts for a few seconds each time. Quality of pain is very atypical, but patient has significant risk factors in the form of diabetes and hypertension. She is not a good historian. There are several family members who are all poor historians, unable to give me any meaningful information. She went and saw her PCP two days ago for her diabetes. However, at the time of my evaluation she is pain-free, resting comfortably without any symptoms. PAST MEDICAL HISTORY: 1. History of CVA, from which she recovered fairly well. 2. Type 2 diabetes. 3. Hypertension. 4. Hyperlipidemia. 5. Osteoarthritis. 6. Hypothyroidism. ALLERGIES: NONE. MEDICATIONS: Medications include: 1. Aspirin 81 mg daily. 2. [place]. 3. Amlodipine 5 mg daily. 4. Synthroid 100 mcg daily. 5. Zestoretic 23/10.5 one and one-half tablet daily. 6. Simvastatin 40 mg daily. 7. Metformin 500 mg b.i.d. 8. Gabapentin. PHYSICAL EXAMINATION: Her blood pressure is 140/70. Pulse rate is 56 per minute, regular. HEENT: Unremarkable. Fundus was not examined by me. Neck is supple. There is no JVD. I do not hear a carotid bruit. There is no thyromegaly. Heart exam reveals S1, S2 with a short systolic murmur at the base. Lungs reveal diminished air entry. Abdomen is soft. There is no significant tenderness. Bowel sounds are normal. Lower extremities reveal diminished pulses. Central nervous system is grossly within normal limits. LABORATORY DATA: D-dimer 0.72. Renal function is normal. Initial troponin is normal. BNP is unremarkable. EKG revealed a sinus mechanism without significant ST-T changes. IMPRESSION: 1. Atypical chest pain. 2. Type 2 diabetes. 3. Hypertension. 4. Hyperlipidemia. RECOMMENDATIONS: Given the elevated D-dimer and patient being a poor historian with pleuritic sharp pain, I am recommending CT angiography to be performed to rule out any pulmonary embolism. I will also obtain serial troponin levels. I will grip assembler her Lovenox 60 mg subcutaneously q.[address] angiography and troponin levels are back. She will be hydrated at 75 mL/hour and I will also perform an echo cardiogram. I discussed my thoughts in detail with the patient and family. Thank you very much for the consult. TOY / ELISHA: [id number] /
[2019-02-20 20:58] LABS: Glucose,Whole Blood 110 mg/dL (75-99)
[2019-02-20] MEDS ORDERED: NON-FORMULARY DRUG (Travoprost [Travatan Z 0.004%] 1 DROP) BOTH EYES SCH (21:00)
[2019-02-20] MEDS ORDERED: LATANOPROST 0.005% OPHTH DROPS 2.5 ML BTL BOTH EYES SCH (21:00)
[2019-02-21] MEDS: SODIUM CHLORIDE 0.9% 1,000 ML IV SCH ×2 (05:22→12:27)
[2019-02-21] MEDS ORDERED: LEVOTHYROXINE 100 MCG TAB PO SCH (06:30)
[2019-02-21] MEDS: KETOROLAC 30 MG/ML 1 ML VIAL IVP SCH ×3 (06:35→15:46)
[2019-02-21 06:50] LABS: Glucose,Whole Blood 115 mg/dL (75-99)
[2019-02-21 06:54] LABS: Cholesterol 159 mg/dL (<200); HDL Cholesterol 60 mg/dL (40-60); LDL Cholesterol,Calculated 64 mg/dL (0-99); Triglycerides 173 mg/dL (<150)
[2019-02-21] MEDS ORDERED: ASPIRIN 325 MG TAB PO SCH (09:00)
[2019-02-21] MEDS ORDERED: SERTRALINE 100 MG TAB PO SCH (09:00)
[2019-02-21] MEDS ORDERED: LISINOPRIL-HCTZ 20-12.5 MG 1 EACH TAB PO SCH (09:00)
[2019-02-21] MEDS ORDERED: METOPROLOL SUCCINATE (ER) 50 MG TAB.ER.24H PO SCH (09:00)
[2019-02-21] MEDS ORDERED: ATORVASTATIN 20 MG TAB PO SCH (09:00)
[2019-02-21] MEDS: GABAPENTIN 100 MG CAP PO SCH ×2 (09:01→15:46)
--- NOTE | 2019-02-21 09:33 | ECHOF ---
Referral Reason:chest pain MEASUREMENTS -------- HEIGHT: 160.0 cm WEIGHT: 67.6 kg BP: IVSd: 1.3 cm (0.6 - 1.1) LVIDd: 4.7 cm (3.9 - 5.3) LVPWd: 0.9 cm (0.6 - 1.1) IVSs: 1.3 cm LVIDs: 3.1 cm LVPWs: 1.1 cm LA Diam: 4.8 cm (2.7 - 3.8) LAESV Index (A-L): 47.81 ml/m Ao Diam: 2.8 cm (2.0 - 3.7) AV Cusp: 1.8 cm (1.5 - 2.6) LA Diam: 3.3 cm (2.7 - 3.8) MV EXCURSION: 14.577 mm (> 18.000) MV EF SLOPE: 89 mm/s (70 - 150) EPSS: 0.8 cm MV E Cody: 0.74 m/s MV DecT: 213 ms MV A Cody: 1.07 m/s MV E/A Ratio: 0.70 RAP: 5.00 mmHg RVSP: 30.98 mmHg FINDINGS -------- Sinus rhythm. This was a technically good study. The left ventricular size is normal. There is mild concentric left ventricular hypertrophy. Overa ll left ventricular systolic function is normal with, an EF between 55 - 60 %. The right ventricle is normal in size. The left atrium is markedly dilated. LA is severely dilated >40 ml/m2 The right atrial size is normal. Interatrial and interventricular septum intact. There is mild aortic valve sclerosis. There is no evidence of aortic regurgitation. Mild mitral annular calcification present. [id number] mitral regurgitation is present. Mild tricuspid regurgitation present. There is no evidence of pulmonary hypertension. The right v entricular systolic pressure, as measured by Doppler, is 30.98mmHg. Trace/mild (physiologic) pulmonic regurgitation. The aortic root size is normal. Normal inferior vena cava with normal inspiratory collapse consistent with estimated right atrial pre ssure of 5 mmHg. There is no pericardial effusion. CONCLUSIONS -------- 1. The left ventricular size is normal. 2. There is mild concentric left ventricular hypertrophy. 3. Overall left ventricular systolic function is normal with, an EF between 55 - 60 %. 4. The right ventricle is normal in size. 5. The left atrium is markedly dilated. 6. LA is severely dilated >40 ml/m2 7. The right atrial size is normal. 8. Interatrial and interventricular septum intact. 9. There is mild aortic valve sclerosis. 10. Mild mitral annular calcification present. 11. [id number]-[id number] mitral regurgitation is present. 12. Mild tricuspid regurgitation present. 13. There is no evidence of pulmonary hypertension. 14. The right ventricular systolic pressure, as measured by Doppler, is 30.98mmHg. 15. Trace/mild (physiologic) pulmonic regurgitation. 16. The aortic root size is normal. 17. Normal inferior vena cava with normal inspiratory collapse consistent with estimated right atrial pressure of 5 mmHg. 18. There is no pericardial effusion. CHIP PERSON: Sierra Leonard RDCS
[2019-02-21 11:45] LABS: Glucose,Whole Blood 216 mg/dL (75-99)
[2019-02-21 12:24] VITALS: BP 135/75; PULSE 78; TEMP 97.7
--- NOTE | 2019-02-21 13:15 | P.DS ---
Providers Date of admission: 02/20/19 08:55 Expected date of discharge: 02/21/19 Attending physician: Constantino Alexander MD Consults: 02/20/19 08:54 Consult Physician Urgent Consulting Provider: Ada Winn Consult Reason/Comments: cp Do you want consulting provider notified?: Yes Primary care physician: [facility] Hospital Course: 78-year-old female with PMH of CVA with left-sided residual weakness, diabetes, hypertension, hyperlipidemia and hypothyroidism presents the ED for chest pain. Patient reports chest pain, left-sided as she was vacuuming on Saturday morning. Patient reports chest pain as stabbing in nature, 10 out of 10 in severity, intermittent lasting minutes at a time radiates to the back and the left arm. Patient reports that the pain got progressively worse, prompting her to come to the ED. Pain is aggravated with movement of the left shoulder. Patient complains of headache that started while in the ED. She did receive nitroglycerin. Patient with a mild lower extremity edema that is alleviated with elevation. She denies any nausea, vomiting, fever, chills, cough, shortness of breath, palpitations, changes in urination or bowel habits. No changes in appetite or weight. Patient denies dizziness, numbness/weakness/tingling of the extremities. In the ED, vital signs are stable. CBC was unremarkable. Coagulation panel was negative. D-dimer was elevated at 0.72. CMP was unremarkable except for glucose of 101. Troponin was less than 0.0122 with EKG showing sinus bradycardia. BNP was 526. Chest x-ray was negative. Chest CTA was performed due to elevated d-dimer to rule out PE, which showed severe cardiomegaly, hyperdensity in the pauline hepatis most likely artifactual, tiny granuloma in the medial aspect of the right lung base, no PE. Patient is admitted for chest pain, rule out acute coronary syndrome, cardiology consult. Patient was evaluated by cardiology and recommended echocardiogram. Echocardiogram showed EF 55-60% with mild concentric LVH. There is no wall motion abnormalities. Troponin was less than 0.0123, EKG showing sinus bradycardia, acute coronary syndrome was ruled out. Patient was cleared from a cardiology perspective. Patient was seen and examined prior to discharge. No acute events overnight. Patient condition complain of left-sided rib pain. States that pain gets worse with deep inspiration. Daughter does report that the patient had a few falls over the last couple of months. She denies any shortness of breath or palpitations. No nausea or vomiting. Given Toradol, mild relief. General: [non toxic], [no distress], [appears at stated age] Derm: [warm], [dry] Head: [atraumatic], [normocephalic], [symmetric] Eyes: [EOMI], [no lid lag], [anicteric sclera] Mouth: [no lip lesion], [mucus membranes moist] Cardiovascular: [S1S2 reg], [no murmur], [positive DP pulse bilateral], Lungs: [CTA bilateral], [no rhonchi, no rales] , [no accessory muscle use] Abdominal: [soft], [ nontender to palpation], [no guarding], [no appreciable organomegaly] Ext: [no gross muscle atrophy], [no edema], [no contractures], [limited range of motion of left shoulder due to pain, tenderness to palpation of the left chest wall] Neuro: [no focal neuro deficits] Psych: [Alert], [oriented], [appropriate affect] Assessment and Plan Chest pain, likely musculoskeletal, rule out ACS Hypertension Diabetes mellitus Glaucoma Hypothyroidism Troponin less than 0.0123, EKG showing sinus bradycardia. Chest x-ray negative for acute process. Elevated d-dimer, CTA rules out PE. ACS ruled out. Pain management with Toradol IV. Continue aspirin, Lipitor. Continue metoprolol. Telemetry monitoring. Echocardiogram with normal EF and mild concentric LVH. Cardiology consulted, cleared for discharge. Ordered x-ray of the ribs to rule out rib fracture given history of falls. BP 135/75. Continue lisinopril and hydrochlorothiazide. Continue metoprolol. Monitor vitals, adjust medications as necessary. [id number] glucose 216. Regular Accu-Cheks. Hypoglycemic precautions. Continue latanoprost. Continue Synthroid. Patient likely to be discharged today pending x-ray of the ribs. Pertinent Studies: Chest x-ray, echocardiogram Patient Condition at Discharge: Stable Plan - Discharge Summary Discharge Rx Participant: No New Discharge Prescriptions: No Action Simvastatin [Zocor] 40 mg PO DAILY Latanoprost Ophth [Xalatan 0.005%] 1 drop BOTH EYES HS metFORMIN HCL [Glucophage] 500 mg PO TID-W/MEALS Levothyroxine Sodium [Synthroid] 100 mcg PO DAILY Gabapentin [Neurontin] 100 mg PO TID Lisinopril-Hctz 20-12.5 mg [Zestoretic 20-12.5] 1.5 tab PO DAILY Travoprost [Travatan Z 0.004%] 1 drop BOTH EYES HS Aspirin 81 mg PO DAILY #30 chew Sertraline HCl [Zoloft] 200 mg PO DAILY Real Tears 2 drops BOTH EYES QID Docusate [Colace] 100 mg PO DAILY Cholecalciferol [Vitamin D3] 1,000 unit PO DAILY Acetaminophen [Tylenol Arthritis] 650 mg PO Q6H PRN PRN Reason: Pain Metoprolol Succinate [Toprol Xl] 50 mg PO DAILY Discharge Medication List Gabapentin [Neurontin] 100 mg PO TID 02/04/17 [History] Latanoprost Ophth [Xalatan 0.005%] 1 drop BOTH EYES HS 02/04/17 [History] Levothyroxine Sodium [Synthroid] 100 mcg PO DAILY 02/04/17 [History] Lisinopril-Hctz 20-12.5 mg [Zestoretic 20-12.5] 1.5 tab PO DAILY 02/04/17 [History] Simvastatin [Zocor] 40 mg PO DAILY 02/04/17 [History] Travoprost [Travatan Z 0.004%] 1 drop BOTH EYES HS 02/04/17 [History] metFORMIN HCL [Glucophage] 500 mg PO TID-W/MEALS 02/04/17 [History] Aspirin 81 mg PO DAILY #30 chew 02/09/17 [Rx] Acetaminophen [Tylenol Arthritis] 650 mg PO Q6H PRN 02/20/19 [History] Cholecalciferol [Vitamin D3] 1,000 unit PO DAILY 02/20/19 [History] Docusate [Colace] 100 mg PO DAILY 02/20/19 [History] Metoprolol Succinate [Toprol Xl] 50 mg PO DAILY 02/20/19 [History] Real Tears 2 drops BOTH EYES QID 02/20/19 [History] Sertraline HCl [Zoloft] 200 mg PO DAILY 02/20/19 [History] Follow up Appointment(s)/Referral(s): David Ace MD [Primary Care Provider] - 1-2 days
--- NOTE | 2019-02-21 15:00 | XR ---
EXAMINATION TYPE: PA chest and bilateral rib series DATE OF EXAM: 02/21/2019 COMPARISON: 02/20/2019 HISTORY: 78-year-old female left-sided rib pain after fall. TECHNIQUE: 9 views FINDINGS: Heart borderline enlarged. Mild diffuse interstitial prominence as a chronic appearance. No consolida tion, pneumothorax, or pleural effusion. Degenerative changes at the bilateral AC joints. Very subtle cortical irregularity along the left anterior fifth rib. No displaced rib fracture identi fied on either side. IMPRESSION: 1. Mild cardiomegaly and chronic appearing changes. No definite acute cardiopulmonary process. 2. Very subtle cortical irregularity along the left anterior fifth rib. Correlate for any point tende rness here to exclude a subtle nondisplaced fracture. No displaced rib fracture seen.
== END 2019-02-21 16:09 | disposition home or self-care (01) ==
LOC: EC 06:58 → 1SOBS 08:55
PROVIDERS: ADMIT Family Medicine; ATTEND Family Medicine
DX: R07.89 Other chest pain (principal); J81.1 Chronic pulmonary edema; I11.9 Hypertensive heart disease without heart failure; R79.89 Other specified abnormal findings of blood chemistry; R51 Headache; I69.354 Hemiplegia and hemiparesis following cerebral infarction affecting left non-dominant side; E78.5 Hyperlipidemia, unspecified; M19.90 Unspecified osteoarthritis, unspecified site; E11.42 Type 2 diabetes mellitus with diabetic polyneuropathy; M79.7 Fibromyalgia; H40.9 Unspecified glaucoma; E03.9 Hypothyroidism, unspecified; F32.9 Major depressive disorder, single episode, unspecified; E66.9 Obesity, unspecified; Z68.26 Body mass index [BMI] 26.0-26.9, adult; R00.1 Bradycardia, unspecified; R60.0 Localized edema; R07.81 Pleurodynia; R29.6 Repeated falls; Z79.82 Long term (current) use of aspirin; Z79.890 Hormone replacement therapy; Z79.84 Long term (current) use of oral hypoglycemic drugs; Z79.899 Other long term (current) drug therapy; Z90.49 Acquired absence of other specified parts of digestive tract; Z83.3 Family history of diabetes mellitus
CPT/HCPCS: 96361; 96375; 96376 ×2; 96374; 99285; 36415; 93306; 85379; 83880; 80061; 80053; 83735; 84484 ×2; 85025; 85610; 85730; 71111; 71046; 74018; 71275; G0378 ×2; J2270; J1885 ×2; Q9967

== ENCOUNTER → 2019-08-26 | Outpatient (CLI) | payer MEDICARE, BC ==
--- NOTE | 2019-08-26 15:55 | XR ---
Right RIBS HISTORY: Trauma and pain 4 views of the right RIBS Bone mineralization is reduced which could limit sensitivity. No evident displaced rib fracture. No p neumothorax or right pleural effusion. Thoracic spondylosis is present. Aorta is dense. IMPRESSION: No acute fracture. Bone scan could be performed for increased sensitivity as clinically i ndicated.
--- NOTE | 2019-08-26 15:57 | XR ---
Mandible HISTORY: Trauma and pain 4 views of the mandible Bone mineralization is reduced. Alignment is maintained. No evident fracture or dislocation. Lung api al are unremarkable. IMPRESSION: No acute abnormality. CT scan could be performed for increased sensitivity as indicated.
--- NOTE | 2019-08-26 15:58 | XR ---
Right shoulder HISTORY: Trauma and pain 3 views of the right shoulder Bone mineralization is reduced. Alignment is maintained. There is arthropathy at the acromioclavicula r joint. Right lung apex as visualized is normal. Distal acromion is downturned. IMPRESSION: No acute fracture or dislocation.
== END | disposition home or self-care (01) ==
LOC: RADXRYALE 14:20
PROVIDERS: ATTEND Nurse Practitioner Family
DX: M54.9 Dorsalgia, unspecified (principal); M25.511 Pain in right shoulder; R68.84 Jaw pain
CPT/HCPCS: 70100

== ENCOUNTER 2020-01-01 11:19 | Inpatient (IN) | payer MEDICARE, BC ==
--- NOTE | 2020-01-01 11:57 | ED ---
General Adult HPI - General Chief complaint: Fall Stated complaint: Fall - back injury Time Seen by Provider: 01/01/20 11:24 Source: EMS Mode of arrival: EMS Limitations: physical limitation - History of Present Illness Initial comments: Dictation was produced using [employer] dictation software. please excuse any grammatical, word or spelling errors. Chief Complaint: 79-year-old female past medical history of dementia, diabetes, hypertension presents with fall. History of Present Illness:-year-old female she is a poor historian she is accompanied by her daughters. Patient was discovered by daughter to be on the ground at home. She was allegedly on the ground for approximately 5-6 hours. Patient is a poor historian. Patient has history of falls according to daughters. Patient states that she denies any numbness tingling to the arms or legs. She does complain of neck pain and upper back pain. Patient is not interactive with me however interactive with family members who assist in obtaining HPI. The ROS documented in this emergency department record has been reviewed and confirmed by me. Those systems with pertinent positive or negative responses have been documented in the HPI. All other systems are other negative and/or noncontributory. PHYSICAL EXAM: General Impression: Alert and oriented x3, not in acute distress, c-collar in place HEENT: Normocephalic atraumatic, extra-ocular movements intact, pupils equal and reactive to light bilaterally, mucous membranes moist. Cardiovascular: Heart regular rate and rhythm, S1&S2 audible, no murmurs, rubs or gallops Chest: Lungs clear to auscultation bilaterally, no rhonchi, no wheeze, no rales Abdomen: Bowel sounds present, abdomen soft, non-tender, non-distended, no organomegaly Musculoskeletal: Pulses present and equal in all extremities, no peripheral ed cathryn Motor: no focal deficits noted Neurological: CN II-XII grossly intact, no focal motor or sensory deficits noted Skin: Intact with no visualized rashes Psych: Normal affect and mood ED course: 79-year-old female presents after fall and upon arrival are within acceptable limits. Physical examination is grossly benign. Medications were reviewed. Patient not on any anticoagulation medications. Laboratory evaluation obtained. Leukocytosis of 18.3. This appears to be significantly elevated. Coag panel unremarkable. Metabolic panel shows mild hypokalemia of 3.3. Urinalysis is positive for nitrates. There are only 2 white blood cells however. Urinalysis concerning for urinary tract infection. Chest x-ray shows concerning infiltrates to the right base. Pelvic x-rays unremarkable. Computed tomography scan of the head and C-spine is negative. Thoracic and lumbar spine CT shows no acute traumatic injuries. According to family patient is significantly weak. They state that she is a handful to take care of at home. They requested patient be admitted for further care. Patient given ceftriaxone for urinary tract infection. According to family patient has not been coughing. She is not showing any signs of respiratory distress per she is not hypoxic on room air. Patient's weaknesses attribute it to urinary tract infection. Pending discussion with Dr. Duarte for admission. EKG interpretation: Ventricular rate 64, normal sinus rhythm, MO interval 152, QRS 86, QTC 501. No MO prolongation. No ST changes or T-wave changes. QT is slightly prolonged at 501. - Related Data Home Medications Medication Instructions Recorded Confirmed Gabapentin [Neurontin] 100 mg PO TID 02/04/17 02/20/19 Latanoprost Ophth [Xalatan 0.005%] 1 drop BOTH EYES HS 02/04/17 02/20/19 Levothyroxine Sodium [Synthroid] 100 mcg PO DAILY 02/04/17 02/20/19 Lisinopril-Hctz 20-12.5 mg 1.5 tab PO DAILY 02/04/17 02/20/19 [Zestoretic 20-12.5] Simvastatin [Zocor] 40 mg PO DAILY 02/04/17 02/20/19 Travoprost [Travatan Z 0.004%] 1 drop BOTH EYES HS 02/04/17 02/20/19 metFORMIN HCL [Glucophage] 500 mg PO TID-W/MEALS 02/04/17 02/20/19 Acetaminophen [Tylenol Arthritis] 650 mg PO Q6H PRN 02/20/19 02/20/19 Cholecalciferol [Vitamin D3 (25 1,000 unit PO DAILY 02/20/19 02/20/19 Mcg = 1000 Iu)] Docusate [Colace] 100 mg PO DAILY 02/20/19 02/20/19 Metoprolol Succinate [Toprol Xl] 50 mg PO DAILY 02/20/19 02/20/19 Real Tears 2 drops BOTH EYES QID 02/20/19 02/20/19 Sertraline HCl [Zoloft] 200 mg PO DAILY 02/20/19 02/20/19 Previous Rx's Medication Instructions Recorded Aspirin 81 mg PO DAILY #30 chew 02/09/17 Ketorolac [Toradol] 10 mg PO Q6HR #20 tab 02/21/19 Lidocaine 5% Patch [Lidoderm 5% 1 patch TOPICAL DAILY #14 patch 02/21/19 Patch] Allergies Allergy/AdvReac Type Severity Reaction Status Date / Time No Known Allergies Allergy Verified 02/20/19 09:23 Review of Systems ROS Statement: Those systems with pertinent positive or pertinent negative responses have been documented in the HPI. ROS Other: All systems not noted in ROS Statement are negative. Past Medical History Past Medical History: CVA/TIA, Diabetes Mellitus, Eye Disorder, Fibromyalgia, Hyperlipidemia, Hypertension, Osteoarthritis (OA), Thyroid Disorder Additional Past Medical History / Comment(s): CVA with some L sided weakness, NIDDM type II, neuropathy bilateral hands, arthritis in legs bilaterally, bilateral eye glaucoma, hypothyroid, pt recently had corn removed from her foot. History of Any Multi-Drug Resistant Organisms: None Reported Past Surgical History: Cholecystectomy Past Anesthesia/Blood Transfusion Reactions: No Reported Reaction Past Psychological History: Depression Smoking Status: Never smoker Past Alcohol Use History: None Reported Past Drug Use History: None Reported - Past Family History Father Family Medical History: No Reported History Additional Family Medical History / Comment(s): Father was healthy. Mother Family Medical History: Diabetes Mellitus General Exam Limitations: physical limitation Course Vital Signs 01/01/20 01/01/20 01/01/20 11:35 13:30 14:20 Temperature 98.1 F Pulse Rate 70 71 68 Respiratory 19 18 18 Rate Blood Pressure 146/52 132/56 118/53 O2 Sat by Pulse 96 94 L 98 Oximetry Medical Decision Making - Lab Data Result diagrams: 01/01/20 12:25 01/01/20 12:25 Lab Results 01/01/20 01/01/20 01/01/20 Range/Units 12:16 12:25 12:25 WBC 18.3 H (3.8-10.6) k/uL RBC 4.33 (3.80-5.40) m/uL Hgb 11.6 (11.4-16.0) gm/dL Hct 35.4 (34.0-46.0) % MCV 81.7 (80.0-100.0) fL MCH 26.8 (25.0-35.0) pg MCHC 32.8 (31.0-37.0) g/dL RDW 13.2 (11.5-15.5) % Plt Count 197 (150-450) k/uL Neutrophils % 85 % Lymphocytes % 9 % Monocytes % 4 % Eosinophils % 0 % Basophils % 0 % Neutrophils # 15.6 H (1.3-7.7) k/uL Lymphocytes # 1.7 (1.0-4.8) k/uL Monocytes # 0.8 (0-1.0) k/uL Eosinophils # 0.0 (0-0.7) k/uL Basophils # 0.0 (0-0.2) k/uL PT 9.7 (9.0-12.0) sec INR 0.9 (<1.2) APTT 23.9 (22.0-30.0) sec Sodium (137-145) mmol/L Potassium (3.5-5.1) mmol/L Chloride (98-107) mmol/L Carbon Dioxide (22-30) mmol/L Anion Gap mmol/L BUN (7-17) mg/dL Creatinine (0.52-1.04) mg/dL Est GFR (CKD-EPI)AfAm (>60 ml/min/1.73 sqM) Est GFR (CKD-EPI)NonAf (>60 ml/min/1.73 sqM) Glucose (74-99) mg/dL POC Glucose (mg/dL) 136 H (75-99) mg/dL POC Glu Hoister ID Tiffanie Sarmiento Plasma Lactic Acid Joseph (0.7-2.0) mmol/L Calcium (8.4-10.2) mg/dL Magnesium (1.6-2.3) mg/dL Creatine Kinase (30-135) U/L Urine Color Urine Appearance (Clear) Urine pH (5.0-8.0) Ur Specific Dell (1.001-1.035) Urine Protein (Negative) Urine Glucose (UA) (Negative) Urine Ketones (Negative) Urine Blood (Negative) Urine Nitrite (Negative) Urine Bilirubin (Negative) Urine Urobilinogen (<2.0) mg/dL Ur Leukocyte Esterase (Negative) Urine RBC (0-5) /hpf Urine WBC (0-5) /hpf Ur Squamous Epith Cells (0-4) /hpf Urine Bacteria (None) /hpf Hyaline Casts (0-2) /lpf Urine Mucus (None) /hpf 01/01/20 01/01/20 01/01/20 Range/Units 12:25 12:25 14:30 WBC (3.8-10.6) k/uL RBC (3.80-5.40) m/uL Hgb (11.4-16.0) gm/dL Hct (34.0-46.0) % MCV (80.0-100.0) fL MCH (25.0-35.0) pg MCHC (31.0-37.0) g/dL RDW (11.5-15.5) % Plt Count (150-450) k/uL Neutrophils % % Lymphocytes % % Monocytes % % Eosinophils % % Basophils % % Neutrophils # (1.3-7.7) k/uL Lymphocytes # (1.0-4.8) k/uL Monocytes # (0-1.0) k/uL Eosinophils # (0-0.7) k/uL Basophils # (0-0.2) k/uL PT (9.0-12.0) sec INR (<1.2) APTT (22.0-30.0) sec Sodium 136 L (137-145) mmol/L Potassium 3.3 L (3.5-5.1) mmol/L Chloride 103 (98-107) mmol/L Carbon Dioxide 24 (22-30) mmol/L Anion Gap 9 mmol/L BUN 20 H (7-17) mg/dL Creatinine 0.60 (0.52-1.04) mg/dL Est GFR (CKD-EPI)AfAm >90 (>60 ml/min/1.73 sqM) Est GFR (CKD-EPI)NonAf 87 (>60 ml/min/1.73 sqM) Glucose 143 H (74-99) mg/dL POC Glucose (mg/dL) (75-99) mg/dL POC Glu Hoister ID Plasma Lactic Acid Joseph 1.8 (0.7-2.0) mmol/L Calcium 9.1 (8.4-10.2) mg/dL Magnesium 1.6 (1.6-2.3) mg/dL Creatine Kinase 59 (30-135) U/L Urine Color Light Yellow Urine Appearance Cloudy H (Clear) Urine pH 6.0 (5.0-8.0) Ur Specific Dell 1.012 (1.001-1.035) Urine Protein Trace H (Negative) Urine Glucose (UA) Negative (Negative) Urine Ketones Negative (Negative) Urine Blood Trace H (Negative) Urine Nitrite Positive H (Negative) Urine Bilirubin Negative (Negative) Urine Urobilinogen <2.0 (<2.0) mg/dL Ur Leukocyte Esterase Negative (Negative) Urine RBC 2 (0-5) /hpf Urine WBC 2 (0-5) /hpf Ur Squamous Epith Cells 1 (0-4) /hpf Urine Bacteria Occasional H (None) /hpf Hyaline Casts 1 (0-2) /lpf Urine Mucus Occasional H (None) /hpf Disposition Clinical Impression: Fall, Weakness, UTI (urinary tract infection) Disposition: ADMITTED IP TO THIS HOSP Condition: Fair Referrals: David Ace MD [Primary Care Provider] - 1-2 days Decision Time: 15:50
[2020-01-01 12:17] LABS: Glucose,Whole Blood 136 mg/dL (75-99)
[2020-01-01 12:42] LABS: Basophils % (A) 0 %; Eosinophils % (A) 0 %; HCT 35.4 % (34.0-46.0); HGB 11.6 gm/dL (11.4-16.0); Lymphocytes # (A) 1.7 k/uL (1.0-4.8); Lymphocytes % (A) 9 %; MCH 26.8 pg (25.0-35.0); MCHC 32.8 g/dL (31.0-37.0); MCV 81.7 fL (80.0-100.0); Monocytes # (A) 0.8 k/uL (0-1.0); Monocytes % (A) 4 %; Neutrophils # (A) 15.6 k/uL (1.3-7.7); Neutrophils % (A) 85 %; Platelet Count 197 k/uL (150-450); RBC 4.33 m/uL (3.80-5.40); RDW 13.2 % (11.5-15.5); WBC 18.3 k/uL (3.8-10.6)
[2020-01-01 12:49] LABS: African American GFR (CKD) >90 (>60 ml/min/1.73 sqM); Anion Gap 9 mmol/L; Blood Urea Nitrogen 20 mg/dL (7-17); Calcium 9.1 mg/dL (8.4-10.2); Carbon Dioxide 24 mmol/L (22-30); Chloride 103 mmol/L (98-107); Creatine Kinase 59 U/L (30-135); Glucose 143 mg/dL (74-99); INR 0.9 (<1.2); Magnesium 1.6 mg/dL (1.6-2.3); Non-African American GFR(CKD) 87 (>60 ml/min/1.73 sqM); Partial Thromboplastin Time 23.9 sec (22.0-30.0); Potassium 3.3 mmol/L (3.5-5.1); Prothrombin Time 9.7 sec (9.0-12.0); Sodium 136 mmol/L (137-145)
--- NOTE | 2020-01-01 13:41 | CT ---
EXAMINATION TYPE: CT brain cspine wo con DATE OF EXAM: 01/01/2020 COMPARISON: CT brain 02/04/2017 HISTORY: Fall today. neck and back pain CT DLP: 1341.5 mGycm Automated exposure control for dose reduction was used. TECHNIQUE: CT scan of the head and cervical spine are performed without contrast. FINDINGS: There is no acute intracranial hemorrhage, mass effect, or midline shift identified. The ventricles and sulci are within normal limits in size. The globes are intact and the visualized sin uses are clear, there is mayela bullosa on the left, minimal mucoperiosteal thickening maxillary sinu s. There are cerebrovascular calcifications. Cortical atrophy is stable. White matter low-attenuation is again seen. Cervical spine is visualized in its entirety from C1 through upper thoracic levels and demonstrates s atisfactory alignment without evidence of acute fracture or dislocation. Prevertebral soft tissue ap pears within normal limits. The C1-C2 articulation is unremarkable. Facet arthropathy changes are pr esent. There is multilevel spondylosis. Arthropathy present at the temporomandibular joints. Patchy d ensity at the lung apices may be indicative of underlying COPD. IMPRESSION: 1. There is no acute fracture or dislocation evident in the cervical spine. 2. No acute intracranial hemorrhage, mass effect, or midline shift is seen.
--- NOTE | 2020-01-01 13:51 | CT ---
EXAMINATION TYPE: CT thor lumbar spine wo con DATE OF EXAM: 01/01/2020 COMPARISON: CT 02/04/2017, 02/20/2019 HISTORY: Fall today. neck and back pain CT DLP: 1572 mGycm Automated exposure control for dose reduction was used. CT of the thoracic lumbar spine performed [facility] departmental protocol FINDINGS: Anterolisthesis grade 1 L4-5 is again seen. Lumbar vertebral bodies show preserved height and alignme nt is otherwise normal within the thoracic and lumbar spine. Multiple calcified intervertebral discs are present in the lower lumbar spine, vacuum phenomenon present at L4-5. There is multilevel facet a rthropathy. Mild spinal curvature is present. Thoracic and lumbar vertebral bodies are intact. No hien dent spinal stenosis in the thoracic spine. Disc bulges are present at L4-5 and L5-S1, possible mass effect on the proximal S1, L5 nerve roots, suspect spinal stenosis at L4-5 contributed by facet arthr opathy. There are coronary calcifications. Multiple calcifications within the spleen and liver are consistent with old granulomatous disease, calcified subcarinal node. Postop changes are present status post ch olecystectomy. Probable exophytic cyst at the upper pole right kidney measuring 15 mm. Atheromatous c hanges are present in the aortoiliac distribution. IMPRESSION: NO ACUTE FRACTURE OR SUBLUXATION. DEGENERATIVE DISC DISEASE AND FACET ARTHROPATHY.
[2020-01-01 14:38] LABS: Appearance,Urine Cloudy (Clear); Bacteria,Urine Occasional /hpf; Bilirubin,Urine Negative (Negative); Blood,Urine Trace (Negative); Color,Urine Light Yellow; Glucose,Urine (UA) Negative (Negative); Hyaline Casts,Urine 1 /lpf (0-2); Ketones,Urine Negative (Negative); Leukocyte Esterase,Urine Negative (Negative); Mucus,Urine Occasional /hpf; Nitrite,Urine Positive (Negative); Protein,Urine Trace (Negative); RBC,Urine 2 /hpf (0-5); Specific Gravity,Urine 1.012 (1.001-1.035); Squamous Epithelial Cell,Urine 1 /hpf (0-4); Urobilinogen,Urine <2.0 mg/dL (<2.0); WBC,Urine 2 /hpf (0-5)
--- NOTE | 2020-01-01 14:49 | XR ---
EXAMINATION TYPE: XR chest 1V portable DATE OF EXAM: 01/01/2020 Comparison: 02/20/2019 Clinical History: 79-year-old female pain after fall Findings: Heart borderline enlarged. Atherosclerotic arch calcifications. Medial right basilar opacity. No othe r consolidation or pleural effusion seen. Impression: Some patchy medial right basilar atelectasis versus early infiltrate. Correlate with patient's sympto ms. Borderline cardiomegaly is similar. Otherwise, no acute process seen.
--- NOTE | 2020-01-01 14:50 | XR ---
EXAMINATION TYPE: XR pelvis AP view DATE OF EXAM: 01/01/2020 CLINICAL HISTORY: Pelvic pain after fall TECHNIQUE: A single AP view of the pelvis is obtained. COMPARISON: None. FINDINGS: There is no acute fracture/dislocation evident in the pelvis. The hip and sacroiliac join ts appear aligned. Moderate bilateral femoral acetabular arthropathy is seen with joint space narrowi ng, acetabular sclerosis and small subchondral cysts. Surgical clips are seen within the pelvic inlet . There is diffuse osseous demineralization. The overlying soft tissue appears unremarkable. IMPRESSION: There is no acute fracture or dislocation in the pelvis.
[2020-01-01] MEDS ORDERED: cefTRIAXone IN SWFI 1,000 MG/10 ML SYRINGE IVP STA (15:01)
[2020-01-01] MEDS ORDERED: NALOXONE 0.4 MG/ML 1 ML VIAL IV PRN (15:40)
[2020-01-01] MEDS ORDERED: ONDANSETRON 4 MG/2 ML VIAL IVP PRN (15:40)
[2020-01-01] MEDS: SODIUM CHLORIDE 0.9% 1,000 ML IV SCH (17:17)
[2020-01-01] MEDS: ACETAMINOPHEN TAB 325 MG TAB PO PRN (22:00)
[2020-01-01 22:03] LABS: Glucose,Whole Blood 149 mg/dL (75-99)
[2020-01-01] MEDS: ARTIFICIAL TEARS-HYPROMELLOSE DROPS 15 ML BTL BOTH EYES SCH (22:45)
[2020-01-02 05:52] VITALS: RESP 16
[2020-01-02] MEDS ORDERED: LEVOTHYROXINE 100 MCG TAB PO SCH (06:30)
[2020-01-02] MEDS ORDERED: LEVOTHYROXINE 112 MCG TAB PO SCH (06:30)
[2020-01-02 07:11] LABS: Glucose,Whole Blood 119 mg/dL (75-99)
[2020-01-02] MEDS: metFORMIN 500 MG TAB PO SCH ×3 (08:06→17:48)
[2020-01-02] MEDS: ARTIFICIAL TEARS-HYPROMELLOSE DROPS 15 ML BTL BOTH EYES SCH ×3 (08:12→17:48)
[2020-01-02] MEDS ORDERED: LISINOPRIL 10 MG TAB PO SCH (09:00)
[2020-01-02] MEDS ORDERED: SERTRALINE 100 MG TAB PO SCH (09:00)
[2020-01-02] MEDS ORDERED: DOCUSATE 100 MG CAP PO SCH (09:00)
[2020-01-02] MEDS ORDERED: METOPROLOL SUCCINATE (ER) 50 MG TAB.ER.24H PO SCH (09:00)
[2020-01-02] MEDS ORDERED: LIDOCAINE 5% PATCH TOPICAL SCH (09:00)
[2020-01-02] MEDS ORDERED: CHOLECALCIFEROL 1,000 UNIT TAB PO SCH (09:00)
[2020-01-02] MEDS ORDERED: ASPIRIN 81 MG PO SCH (09:00)
[2020-01-02] MEDS: ACETAMINOPHEN TAB 325 MG TAB PO PRN (09:13)
[2020-01-02 11:59] LABS: Glucose,Whole Blood 118 mg/dL (75-99)
[2020-01-02 14:25] VITALS: BP 118/69; PULSE 75; TEMP 97.8
[2020-01-02] MEDS ORDERED: ASPIRIN 81 MG PO STA (14:26)
--- NOTE | 2020-01-02 14:31 | P.HPIM ---
History of Present Illness This is a pleasant 79 years old male with past medical history of dementia, diabetes mellitus, fibromyalgia, hyperlipidemia, hypertension, osteoarthritis, hypothyroidism, CVA with left-sided hemiparesis, diabetic neuropathy, patient is somewhat poor historian and information were taken with the help of the daughter at bedside. Patient lives with her daughter, and they found her on the floor yesterday at 10 AM, as per daughter they suspect she fell as she was trying to get out of bed about 5-6 AM, patient herself does not remember this. Patient is alert to place only she knows she is in the [facility] but she could not know the name of the hospital as [facility] [place], after a fall patient was complaining of from headache, neck pain and back pain, which is improved much now however she has difficulty raising her right leg, partly due to pain of the knee which looks swollen as well, also patient complaining of from right hip and right knee pain. On examination her right leg, right upper extremity are weak, there is decreased sensation on the right leg, right upper extremity and right side of the face with mild facial deviation , as per daughter as well. Speech is slower than usual as per daughter patient falls frequently, she fell about 3 times last year and one time about 2 months ago for this Patient denies chest pain or dyspnea, no abdominal pain or nausea vomiting. She denies dysuria but states that increased frequency of urination of good amount No history of smoking, alcohol or illicit tracts Vitas looks stable and patient is afebrile. Labs showing leukocytosis of 18.3 K, less of CBC is unremarkable, INR 0.9, sodium 136, potassium 3.3, creatinine 0.6, sugar controlled, urinalysis is suspicious with infections cloudy, positive nitrite, lactic acid is normal at 1.8. EKG showing normal sinus rhythm at 64 with QTC of 501, no significant ST T changes: Chest x-ray: Patchy right basilar atelectasis versus early infiltrate. Pelvic x-ray: No fracture or dislocation. Thoracal lumbar spinal computed tomography scan without contrast showing no acute fracture or subluxation, degenerative disc disease and facet arthropathy. in the emergency room patient was started on ceftriaxone. Review of Systems CONSTITUTIONAL: No fever, no malaise, no fatigue. HEENT: No recent visual problems or hearing problems. Denied any sore throat. CARDIOVASCULAR: No orthopnea, PND, no palpitations, no syncope. PULMONARY: No shortness of breath, no cough, no hemoptysis. GASTROINTESTINAL: No diarrhea, no nausea, no vomiting, no abdominal pain. Normoactive bowel sounds. -NEUROLOGICAL: No seizure-like activity, no blurred vision HEMATOLOGICAL: Denies any bleeding or petechiae. GENITOURINARY: Denies any burning micturition, frequency, or urgency. MUSCULOSKELETAL/RHEUMATOLOGICAL: Denies any muscle pain. ENDOCRINE: Denies any polyuria or polydipsia. Past Medical History Past Medical History: Chest Pain / Angina, CVA/TIA, Dementia, Diabetes Mellitus, Eye Disorder, Fibromyalgia, Hyperlipidemia, Hypertension, Memory Impairment, Osteoarthritis (OA), Pneumonia, Thyroid Disorder Additional Past Medical History / Comment(s): CVA with some L sided weakness, NIDDM type II, neuropathy bilateral hands, arthritis in legs bilaterally, bilateral eye glaucoma, hypothyroid, pt recently had corn removed from her foot. History of Any Multi-Drug Resistant Organisms: None Reported Past Surgical History: Cholecystectomy Past Anesthesia/Blood Transfusion Reactions: No Reported Reaction Past Psychological History: Depression Additional Psychological History / Comment(s): Pt resides with her daughter and daughter's family. She uses a walker prn. She no longer drives. Her daughter takes her to appts. Pt manages her own medications. Smoking Status: Never smoker Past Alcohol Use History: None Reported Past Drug Use History: None Reported - Past Family History Father Family Medical History: No Reported History Additional Family Medical History / Comment(s): Father was healthy. Mother Family Medical History: Diabetes Mellitus Medications and Allergies Home Medications Medication Instructions Recorded Confirmed Type Latanoprost Ophth [Xalatan 0.005%] 1 drop BOTH EYES HS 02/04/17 01/01/20 History Travoprost [Travatan Z 0.004%] 1 drop BOTH EYES HS 02/04/17 01/01/20 History metFORMIN HCL [Glucophage] 500 mg PO TID-W/MEALS 02/04/17 01/01/20 History Aspirin 81 mg PO DAILY #30 chew 02/09/17 01/01/20 Rx Acetaminophen [Tylenol Arthritis] 650 mg PO Q6H PRN 02/20/19 01/01/20 History Cholecalciferol [Vitamin D3 (25 2,000 unit PO DAILY 02/20/19 01/01/20 History Mcg = 1000 Iu)] Docusate [Colace] 100 mg PO DAILY 02/20/19 01/01/20 History Metoprolol Succinate [Toprol Xl] 50 mg PO DAILY 02/20/19 01/01/20 History Real Tears 2 drops BOTH EYES QID 02/20/19 01/01/20 History Sertraline HCl [Zoloft] 200 mg PO DAILY 02/20/19 01/01/20 History Ketorolac [Toradol] 10 mg PO Q6HR #20 tab 02/21/19 01/01/20 Rx Lidocaine 5% Patch [Lidoderm 5% 1 patch TOPICAL DAILY #14 patch 02/21/19 01/01/20 Rx Patch] Hydrochlorothiazide 12.5 mg PO DAILY 01/01/20 01/01/20 History Levothyroxine Sodium [Synthroid] 112 mcg PO DAILY 01/01/20 01/01/20 History Lisinopril [Zestril] 30 mg PO DAILY 01/01/20 01/01/20 History Allergies Allergy/AdvReac Type Severity Reaction Status Date / Time No Known Allergies Allergy Verified 02/20/19 09:23 Physical Exam Vitals: Vital Signs Temp Pulse Pulse Resp BP BP Pulse Ox 01/02/20 05:51 97.6 F 58 L 16 131/58 98 01/01/20 20:50 98.7 F 65 20 143/72 99 01/01/20 17:35 97.8 F 65 16 151/77 98 01/01/20 16:24 98.2 F 62 18 137/57 98 01/01/20 14:20 68 18 118/53 98 01/01/20 13:30 71 18 132/56 94 L Intake and Output 01/01/20 01/02/20 01/02/20 22:59 06:59 14:59 Other: Voiding Method Bedpan Bedpan Bedpan # Voids 1 2 # Bowel Movements 1 Weight 72.575 kg GENERAL: The patient is alert and oriented x1, not in any acute distress. Well developed, well nourished. HEENT: Pupils are round and equally reacting to light. EOMI. No scleral icterus. No conjunctival pallor. Normocephalic, atraumatic. No pharyngeal erythema. No thyromegaly. CARDIOVASCULAR: S1 and S2 present. No murmurs, rubs, or gallops. PULMONARY: Chest is clear to auscultation, no wheezing or crackles. ABDOMEN: Soft, nontender, nondistended, normoactive bowel sounds. No palpable organomegaly. MUSCULOSKELETAL: No joint swelling or deformity. -EXTREMITIES: No cyanosis, clubbing, or pedal edema. Right knee is swollen and tender but not great or hot -NEUROLOGICAL: Alert awake and oriented to place only, not to time or person and she did not know which she was disorder name of the president, weakness of the right side including leg, arm, she barely can address her right leg off bed, she has weaker relay man on the right side, she has decreased sensation on the right leg, right upper extremity and right side of the face with mild facial deviation SKIN: No rashes. No petechiae Results CBC & Chem 7: 01/01/20 12:25 01/01/20 12:25 Labs: Abnormal Lab Results - Last 24 Hours (Table) 01/01/20 01/01/20 01/02/20 Range/Units 14:30 22:01 07:08 POC Glucose (mg/dL) 149 H 119 H (75-99) mg/dL Urine Appearance Cloudy H (Clear) Urine Protein Trace H (Negative) Urine Blood Trace H (Negative) Urine Nitrite Positive H (Negative) Urine Bacteria Occasional H (None) /hpf Urine Mucus Occasional H (None) /hpf 01/02/20 Range/Units 11:57 POC Glucose (mg/dL) 118 H (75-99) mg/dL Urine Appearance (Clear) Urine Protein (Negative) Urine Blood (Negative) Urine Nitrite (Negative) Urine Bacteria (None) /hpf Urine Mucus (None) /hpf Thrombosis Risk Factor Assmnt - Choose All That Apply Each Factor Represents 1 point: Obesity (BMI >25) Other Risk Factors: Yes Each Risk Factor Represents 3 Points: Age 75 years or older Other congenital or acquired thrombophilia - If yes, enter type in comment: No Thrombosis Risk Factor Assessment Total Risk Factor Score: 4 Thrombosis Risk Factor Assessment Level: Moderate Risk Assessment and Plan Assessment: Right leg and arm weakness with decreased sensation on the right side of the body (leg, arm and face) , with slurred speech suspicious for acute stroke Right knee pain and swelling, and right hip pain, rule out fracture Recurrent falls Possible acute urinary tract infection Metabolic encephalopathy secondary to above Diabetes mellitus Hypertension Hyperlipidemia Dementia Fibromyalgia Hypothyroidism Osteoarthritis Degenerative disc disease with facet arthropathy History of CVA with left sided hemiparesis Diabetic neuropathy Plan: This is a pleasant 79 years old male who presents with UTI. Continue with ceftriaxone, send urine culture, continue with neuro check, patient will need neurological service evaluation which is are not available at this hospital, discussed with the daughter at bedside to transfer to patient to a facility where neuro coverage is available, she wanted to discuss with her other 2 sisters and family and let the medical team know. In the meantime we'll increase her dose of aspirin from 81 to 162 mg, the patient nothing by mouth with speech and swallow evaluation Also we'll do x-ray of the right hip and right knee Labs and medication were reviewed.. Continue same treatment. Continue with sym ptomatic treatment. Resume home medication. Monitor lytes and vitals. DVT and GI prophylaxis. Further recommendations of the clinical course of the patient DVT prophylaxis: Subcutaneous heparin GI Prophylaxis: Pepcid PT/OT: Pending Prognosis is guarded discussed with the staff
--- NOTE | 2020-01-02 15:13 | XR ---
EXAMINATION TYPE: XR knee 4V RT DATE OF EXAM: 01/02/2020 COMPARISON: None HISTORY: Pain swelling TECHNIQUE: 4 view right knee FINDINGS: Small joint effusion is not excluded. Calcifications within the medial lateral menisci. Mil d joint space narrowing is at the medial compartment joint space with medial tibial plateau spurring. Some medial femoral condylar spurring is also noted. IMPRESSION: 1. No acute osseous abnormality. 2. Clinical correlation recommended for calcium pyrophosphate deposition disease. 3. Mild osteoarthritic degenerative change medial compartment right knee
[2020-01-02] MEDS: SODIUM CHLORIDE 0.9% 1,000 ML IV SCH (15:15)
--- NOTE | 2020-01-02 15:17 | XR ---
EXAMINATION TYPE: XR Hip Limited RT DATE OF EXAM: 01/02/2020 COMPARISON: 01/01/2020 HISTORY: Right hip pain TECHNIQUE: Single AP view right hip FINDINGS: Femoral head articulates with the acetabulum. Some acetabular spurring and femoral head spu rring is present. There is narrowing of the joint space. No acute fractures are evident. IMPRESSION: 1. Mild to moderate osteoarthritic degenerative change right hip
[2020-01-02] MEDS ORDERED: HEPARIN SODIUM,PORCINE 5,000 UNIT/ML 1 ML VIAL SQ SCH (21:00)
[2020-01-02] MEDS ORDERED: TRAVOPROST BOTH EYES SCH (21:00)
[2020-01-02] MEDS ORDERED: LATANOPROST 0.005% OPHTH DROPS 2.5 ML BTL BOTH EYES SCH (21:00)
[2020-01-02] MEDS ORDERED: FAMOTIDINE 20 MG/2 ML VIAL IV SCH (21:00)
[2020-01-03] MEDS ORDERED: ASPIRIN 81 MG PO SCH (09:00)
--- NOTE | 2020-01-08 15:37 | CDI ---
Documentation Clarification Form Date: 01/08/20 From: Matilde Diaz Phone: If you have a question about this query, please contact Telma Car, Grout Machine Operator at [phone] between 8am and 5pm. Admit Date: 01/01/20 Discharge Date:01/02/20 Patient Name: Bertrand Millan Visit Number: [id number] ATTENTION: The Clinical Documentation Specialists (CDI) and [facility] Coding Staff appreciate your assistance in clarifying documentation. Please respond to the clarification below the line at the bottom and electronically sign. The CDI & [facility] Coding staff will review the response and follow-up if needed. Please note: Queries are made part of the Legal Health Record. If you have any questions, please contact the author of this message via ITS. Dear Dr. Hilliard Metabolic encephalopathy is documented in the H&P/discharge summary. History/Risk Factors: Possible UTI, possible CVA, dementia Clinical Indicators: Patient's baseline mental status not documented, ED doctor documented alert and oriented x 3. Documentation in the H&P stated alert and oriented x1 Labs: WBC 18.3, urine: cloudy, trace protein, trace blood, nitrite positive, occasional bacteria, occasional mucus EEG: No done CT: Brain - No acute intracranial hemorrhage, mass effect or midline shift is seen. Treatment: IV Rocephin Consults: No neurology consult available Other: In your professional opinion, can you please clarify if the metabolic encephalopathy was? Ruled Out Ruled In Other, please specify Unable to determine possible metabolic encephalopathy MTDD
--- NOTE | 2020-01-18 12:59 | CDI ---
Documentation Clarification Form Date: 01/18/20 From: Matilde Diaz Phone: If you have a question about this query, please contact Telma Car, Senior Manager [employer] at [phone] between 8am and 5pm. Admit Date: 01/01/20 Discharge Date: 01/02/20 Patient Name: Junior Millan Visit Number: ATTENTION: The Clinical Documentation Specialists (CDI) and [facility] Coding Staff appreciate your assistance in clarifying documentation. Please respond to the clarification below the line at the bottom and electronically sign. The CDI & [facility] Coding staff will review the response and follow-up if needed. Please note: Queries are made part of the Legal Health Record. If you have any questions, please contact the author of this message via ITS. Dear Dr. Hilliard Suspicion for acute stroke is documented as a diagnosis in the H&P/DS but documentation needs clarification. CT of the brain does not support an acute CVA. History/risk factors: Previous CVA with left-sided hemiparesis, metabolic encephalopathy, UTI Clinical Indicators: Right leg and arm weakness, decreased sensation of the right side of the body(leg, arm and face), slurred speech CT: No acute intracranial hemorrhage, mass effect, or midline shift is seen. MRI/MRA: Not done Treatment: Fluids at 20 mls/hr, 81 mg ASA daily, In your professional opinion, please further clarify if the patient's symptoms indicated: New CVA with right sided weakness Old CVA Other (please specify) Unable to Determine DDx: new CVA MTDD
== END 2020-01-02 19:20 | disposition short-term general hospital (02) | DRG 64 ==
LOC: EC 11:19 → 6NMEDSUR 15:40
PROVIDERS: ADMIT Internal Medicine; ATTEND Internal Medicine
DX: I63.9 Cerebral infarction, unspecified (principal); G93.41 Metabolic encephalopathy; G81.91 Hemiplegia, unspecified affecting right dominant side; I69.354 Hemiplegia and hemiparesis following cerebral infarction affecting left non-dominant side; N39.0 Urinary tract infection, site not specified; E11.42 Type 2 diabetes mellitus with diabetic polyneuropathy; F03.90 Unspecified dementia, unspecified severity, without behavioral disturbance, psychotic disturbance, mood disturbance, and anxiety; R29.810 Facial weakness; R47.89 Other speech disturbances; R40.2142 Coma scale, eyes open, spontaneous, at arrival to emergency department; R40.2362 Coma scale, best motor response, obeys commands, at arrival to emergency department; R40.2252 Coma scale, best verbal response, oriented, at arrival to emergency department; E03.9 Hypothyroidism, unspecified; E78.5 Hyperlipidemia, unspecified; E87.6 Hypokalemia; F32.9 Major depressive disorder, single episode, unspecified; I10 Essential (primary) hypertension; M79.7 Fibromyalgia; H40.9 Unspecified glaucoma; R29.6 Repeated falls; M25.561 Pain in right knee; M54.2 Cervicalgia; R51 Headache; M19.90 Unspecified osteoarthritis, unspecified site; M54.9 Dorsalgia, unspecified; M25.551 Pain in right hip; Z79.82 Long term (current) use of aspirin; Z79.84 Long term (current) use of oral hypoglycemic drugs; Z79.890 Hormone replacement therapy; Z79.899 Other long term (current) drug therapy; Z91.81 History of falling; Z90.49 Acquired absence of other specified parts of digestive tract; Z83.3 Family history of diabetes mellitus; W19.XXXA Unspecified fall, initial encounter
CPT/HCPCS: 36415; 70450; 71045; 72125; 72128; 72131; 72170; 73501; 80048; 81001; 82550; 83605; 83735; 85025; 85610; 85730; 87040; 93005; 96374; 99285

== ENCOUNTER 2020-08-07 17:11 | Emergency (ER) | payer MEDICARE, BC ==
[2020-08-07 17:18] VITALS: TEMP 97.8
--- NOTE | 2020-08-07 17:56 | ED ---
General Adult HPI - General Chief complaint: Fall Stated complaint: Fall,head injury Time Seen by Provider: 08/07/20 17:25 Source: patient Mode of arrival: ambulatory Limitations: no limitations - History of Present Illness Initial comments: Dictation was produced using Wi[employer] dictation software. please excuse any grammatical, word or spelling errors. This patient was cared for during a federal and state declared state of emergency secondary to Covid 19 Chief Complaint: 80-year-old female presents after fall. History of Present Illness: She doesn't 80-year-old female she is a poor historian however she is accompanied her daughter. Patient has multiple comorbidities. According to daughter patient fell down. More specifically patient was found to be on the ground. It's unclear when patient fell. Daughter last saw patient at approximately 10 AM when the left. He came home approximately 1 PM and she was found to be on the ground. Patient is unable to explain how she fell. Had multiple episodes of falling. There is concern that patient lost consciousness. The ROS documented in this emergency department record has been reviewed and confirmed by me. Those systems with pertinent positive or negative responses have been documented in the HPI. All other systems are other negative and/or noncontributory. PHYSICAL EXAM: General Impression: Alert and oriented x3, not in acute distress HEENT: Right frontal forehead hematoma, extra-ocular movements intact, pupils equal and reactive to light bilaterally, mucous membranes moist. Cardiovascular: Heart regular rate and rhythm Chest: Able to complete full sentences, no retractions, no tachypnea Abdomen: abdomen soft, non-tender, non-distended, no organomegaly Musculoskeletal: Pulses present and equal in all extremities, no peripheral edema Motor: no focal deficits noted Neurological: CN II-XII grossly intact, no focal motor or sensory deficits noted Skin: Intact with no visualized rashes Psych: Normal affect and mood ED course: 80-year-old female presents after fall. Patient is a poor historian. Vital signs upon arrival is within acceptable limits. EKG is unremarkable. Laboratory evaluation obtained. CBC, metabolic panel is unremarkable. There is some degree of dehydration. Cardiac enzymes negative. Computed tomography scan of the head and C-spine was obtained showing no acute intracranial injuries. Cervical spine is unremarkable. Chest x-ray is unremarkable actually looks improved compared to most previous examination. Spine x-ray shows no compression fractures. His x-ray is nonacute. Urinalysis unremarkable. Patient reevaluated at bedside and found to be stable medical condition. She appears to be in good health. She is well-appearing. She does live at home with her daughter there is other family members that live nearby. She has a great social situation. Patient and daughter are agreeable with discharge. They're told to follow-up with primary care physician. EKG interpretation: Ventricular rate site is bradycardia, ventricular rate 55, when necessary 142, QRS 80, QTc 447. No PA prolongation, no QTC prolongation, no ST or T-wave changes noted. Overall, this EKG is unremarkable - Related Data Home Medications Medication Instructions Recorded Confirmed Latanoprost Ophth [Xalatan 0.005%] 1 drop BOTH EYES HS 02/04/17 01/01/20 Travoprost [Travatan Z 0.004%] 1 drop BOTH EYES HS 02/04/17 01/01/20 metFORMIN HCL [Glucophage] 500 mg PO TID-W/MEALS 02/04/17 01/01/20 Acetaminophen [Tylenol Arthritis] 650 mg PO Q6H PRN 02/20/19 01/01/20 Cholecalciferol [Vitamin D3 (25 2,000 unit PO DAILY 02/20/19 01/01/20 Mcg = 1000 Iu)] Docusate [Colace] 100 mg PO DAILY 02/20/19 01/01/20 Metoprolol Succinate [Toprol Xl] 50 mg PO DAILY 02/20/19 01/01/20 Real Tears 2 drops BOTH EYES QID 02/20/19 01/01/20 Sertraline HCl [Zoloft] 200 mg PO DAILY 02/20/19 01/01/20 Hydrochlorothiazide 12.5 mg PO DAILY 01/01/20 01/01/20 [hydroCHLOROthiazide] Levothyroxine Sodium [Synthroid] 112 mcg PO DAILY 01/01/20 01/01/20 lisinopriL [Zestril] 30 mg PO DAILY 01/01/20 01/01/20 Previous Rx's Medication Instructions Recorded Aspirin 81 mg PO DAILY #30 chew 02/09/17 Ketorolac [Toradol] 10 mg PO Q6HR #20 tab 02/21/19 Lidocaine 5% Patch [Lidoderm 5% 1 patch TOPICAL DAILY #14 patch 02/21/19 Patch] Ibuprofen 400 mg PO Q8H PRN #15 tab 07/04/20 methocarbamoL [Robaxin] 500 mg PO TID PRN #15 tab 07/04/20 Allergies Allergy/AdvReac Type Severity Reaction Status Date / Time No Known Allergies Allergy Verified 08/07/20 17:18 Review of Systems ROS Statement: Those systems with pertinent positive or pertinent negative responses have been documented in the HPI. ROS Other: All systems not noted in ROS Statement are negative. Past Medical History Past Medical History: Chest Pain / Angina, CVA/TIA, Dementia, Diabetes Mellitus, Eye Disorder, Fibromyalgia, Hyperlipidemia, Hypertension, Memory Impairment, Osteoarthritis (OA), Pneumonia, Thyroid Disorder Additional Past Medical History / Comment(s): CVA with some L sided weakness, NIDDM type II, neuropathy bilateral hands, arthritis in legs bilaterally, bilateral eye glaucoma, hypothyroid, pt recently had corn removed from her foot. History of Any Multi-Drug Resistant Organisms: None Reported Past Surgical History: Cholecystectomy Past Anesthesia/Blood Transfusion Reactions: No Reported Reaction Past Psychological History: Depression Smoking Status: Never smoker Past Alcohol Use History: None Reported Past Drug Use History: None Reported - Past Family History Father Family Medical History: No Reported History Additional Family Medical History / Comment(s): Father was healthy. Mother Family Medical History: Diabetes Mellitus General Exam Limitations: no limitations Course Vital Signs 08/07/20 08/07/20 17:14 18:34 Temperature 97.8 F 97.8 F Pulse Rate 57 L 60 Respiratory 18 18 Rate Blood Pressure 187/93 172/74 O2 Sat by Pulse 98 100 Oximetry Medical Decision Making - Lab Data Result diagrams: 08/07/20 18:27 08/07/20 18:27 Lab Results 08/07/20 08/07/20 08/07/20 Range/Units 18:27 18:27 18:27 WBC 8.3 (3.8-10.6) k/uL RBC 4.40 (3.80-5.40) m/uL Hgb 11.9 (11.4-16.0) gm/dL Hct 37.4 (34.0-46.0) % MCV 85.1 (80.0-100.0) fL MCH 27.1 (25.0-35.0) pg MCHC 31.9 (31.0-37.0) g/dL RDW 14.6 (11.5-15.5) % Plt Count 188 (150-450) k/uL Neutrophils % 59 % Lymphocytes % 34 % Monocytes % 5 % Eosinophils % 1 % Basophils % 0 % Neutrophils # 4.9 (1.3-7.7) k/uL Lymphocytes # 2.8 (1.0-4.8) k/uL Monocytes # 0.4 (0-1.0) k/uL Eosinophils # 0.1 (0-0.7) k/uL Basophils # 0.0 (0-0.2) k/uL Sodium 136 L (137-145) mmol/L Potassium 4.2 (3.5-5.1) mmol/L Chloride 104 (98-107) mmol/L Carbon Dioxide 27 (22-30) mmol/L Anion Gap 5 mmol/L BUN 19 H (7-17) mg/dL Creatinine 0.68 (0.52-1.04) mg/dL Est GFR (CKD-EPI)AfAm >90 (>60 ml/min/1.73 sqM) Est GFR (CKD-EPI)NonAf 82 (>60 ml/min/1.73 sqM) Glucose 105 H (74-99) mg/dL Plasma Lactic Acid Joseph (0.7-2.0) mmol/L Calcium 9.7 (8.4-10.2) mg/dL Magnesium 2.0 (1.6-2.3) mg/dL Total Bilirubin 0.5 (0.2-1.3) mg/dL AST 23 (14-36) U/L ALT 11 (4-34) U/L Alkaline Phosphatase 89 (38-126) U/L Creatine Kinase 60 (30-135) U/L Troponin I (0.000-0.034) ng/mL Total Protein 7.1 (6.3-8.2) g/dL Albumin 4.2 (3.5-5.0) g/dL Urine Color Colorless Urine Appearance Clear (Clear) Urine pH 7.5 (5.0-8.0) Ur Specific [place] 1.008 (1.001-1.035) Urine Protein Negative (Negative) Urine Glucose (UA) Negative (Negative) Urine Ketones Negative (Negative) Urine Blood Negative (Negative) Urine Nitrite Negative (Negative) Urine Bilirubin Negative (Negative) Urine Urobilinogen <2.0 (<2.0) mg/dL Ur Leukocyte Esterase Negative (Negative) 08/07/20 08/07/20 Range/Units 18:27 18:27 WBC (3.8-10.6) k/uL RBC (3.80-5.40) m/uL Hgb (11.4-16.0) gm/dL Hct (34.0-46.0) % MCV (80.0-100.0) fL MCH (25.0-35.0) pg MCHC (31.0-37.0) g/dL RDW (11.5-15.5) % Plt Count (150-450) k/uL Neutrophils % % Lymphocytes % % Monocytes % % Eosinophils % % Basophils % % Neutrophils # (1.3-7.7) k/uL Lymphocytes # (1.0-4.8) k/uL Monocytes # (0-1.0) k/uL Eosinophils # (0-0.7) k/uL Basophils # (0-0.2) k/uL Sodium (137-145) mmol/L Potassium (3.5-5.1) mmol/L Chloride (98-107) mmol/L Carbon Dioxide (22-30) mmol/L Anion Gap mmol/L BUN (7-17) mg/dL Creatinine (0.52-1.04) mg/dL Est GFR (CKD-EPI)AfAm (>60 ml/min/1.73 sqM) Est GFR (CKD-EPI)NonAf (>60 ml/min/1.73 sqM) Glucose (74-99) mg/dL Plasma Lactic Acid Joseph 0.7 (0.7-2.0) mmol/L Calcium (8.4-10.2) mg/dL Magnesium (1.6-2.3) mg/dL Total Bilirubin (0.2-1.3) mg/dL AST (14-36) U/L ALT (4-34) U/L Alkaline Phosphatase (38-126) U/L Creatine Kinase (30-135) U/L Troponin I <0.012 (0.000-0.034) ng/mL Total Protein (6.3-8.2) g/dL Albumin (3.5-5.0) g/dL Urine Color Urine Appearance (Clear) Urine pH (5.0-8.0) Ur Specific [place] (1.001-1.035) Urine Protein (Negative) Urine Glucose (UA) (Negative) Urine Ketones (Negative) Urine Blood (Negative) Urine Nitrite (Negative) Urine Bilirubin (Negative) Urine Urobilinogen (<2.0) mg/dL Ur Leukocyte Esterase (Negative) Disposition Clinical Impression: Fall Disposition: HOME SELF-CARE Condition: Good Instructions (If sedation given, give patient instructions): Fall Prevention for Older Adults (ED) Is patient prescribed a controlled substance at d/c from ED?: No Referrals: David Ace MD [Primary Care Provider] - 1-2 days Time of Disposition: 19:39
--- NOTE | 2020-08-07 18:21 | CT ---
EXAMINATION TYPE: CT brain cspine wo con DATE OF EXAM: 08/07/2020 COMPARISON: 01/01/2020 HISTORY: Fall today, right frontal head injury, +LOC. CT DLP: 1160.4 mGycm Automated exposure control for dose reduction was used. Exam performed with no contrast. There is cerebral cortical atrophy. There is no mass effect nor midline shift. There is no sign of in tracranial hemorrhage. The calvarium is intact. Skull base is intact. There is normal aeration of the mastoid sinuses. There is small right frontal scalp hematoma measuring 4 mm in thickness. Cervical vertebra have normal alignment. Disc spaces are slightly narrowed at C5-6 and C6-7. There is mild multilevel cervical facet arthropathy. There is no evidence of cervical spine fracture. Prevert ebral soft tissues are intact. IMPRESSION: Cerebral atrophy. No acute intracranial abnormality. Small right frontal scalp hematoma. Spondylotic mild changes in the lower cervical spine. No fracture. Brain and cervical spine unchanged compared to old exam.
--- NOTE | 2020-08-07 18:31 | XR ---
EXAMINATION TYPE: XR chest 2V DATE OF EXAM: 08/07/2020 COMPARISON: NONE HISTORY: Fall. Chest pain TECHNIQUE: FINDINGS: There is no heart failure nor confluent pneumonic infiltrate. Costophrenic angles are clear . Thoracic aorta is atheromatous. The bony thorax is intact. IMPRESSION: No active cardiopulmonary disease. There is clearing of small infiltrate right lung base compared to old exam.
--- NOTE | 2020-08-07 18:34 | XR ---
EXAMINATION TYPE: XR spine complete AP and Lat DATE OF EXAM: 08/07/2020 COMPARISON: NONE HISTORY: Pain. TECHNIQUE: 10 views FINDINGS: Cervical vertebra have normal alignment. There is C5-6 and C6-7 spondylotic changes with sp ur formation and anterior osteophytes. The posterior elements are intact. Skull base is intact. There is osteopenia. Thoracic vertebra have normal alignment. There is no significant compression def ormity. Lumbar vertebra have fairly normal alignment. There is a mild degenerative first-degree L4-5 spondylo listhesis of 5 mm. There is no lumbar compression fracture. Posterior elements are intact. There is n o thoracic paraspinal mass. Sacroiliac joints are intact. IMPRESSION: Spondylotic changes. Degenerative first-degree L4-5 spondylolisthesis. No acute abnormali ty of the cervical thoracic and lumbar spine. No compression fracture.
--- NOTE | 2020-08-07 18:35 | XR ---
EXAMINATION TYPE: XR pelvis AP view DATE OF EXAM: 08/07/2020 COMPARISON: 01/01/2020 HISTORY: Pain. Fall. TECHNIQUE: Single view FINDINGS: The pelvic ring appears intact. The proximal femurs are intact. Acetabula show spur formati on. Sacroiliac joints are intact. IMPRESSION: No acute abnormality of the pelvis. No fracture seen.
[2020-08-07 18:37] LABS: Basophils % (A) 0 %; Eosinophils # (A) 0.1 k/uL (0-0.7); Eosinophils % (A) 1 %; HCT 37.4 % (34.0-46.0); HGB 11.9 gm/dL (11.4-16.0); Lymphocytes # (A) 2.8 k/uL (1.0-4.8); Lymphocytes % (A) 34 %; MCH 27.1 pg (25.0-35.0); MCHC 31.9 g/dL (31.0-37.0); MCV 85.1 fL (80.0-100.0); Mean Platelet Volume 7.6; Monocytes # (A) 0.4 k/uL (0-1.0); Monocytes % (A) 5 %; Neutrophils # (A) 4.9 k/uL (1.3-7.7); Neutrophils % (A) 59 %; Platelet Count 188 k/uL (150-450); RDW 14.6 % (11.5-15.5); WBC 8.3 k/uL (3.8-10.6)
[2020-08-07 18:47] LABS: ALT 11 U/L (4-34); AST 23 U/L (14-36); African American GFR (CKD) >90 (>60 ml/min/1.73 sqM); Albumin 4.2 g/dL (3.5-5.0); Alkaline Phosphatase 89 U/L (38-126); Anion Gap 5 mmol/L; Blood Urea Nitrogen 19 mg/dL (7-17); Calcium 9.7 mg/dL (8.4-10.2); Carbon Dioxide 27 mmol/L (22-30); Chloride 104 mmol/L (98-107); Creatine Kinase 60 U/L (30-135); Glucose 105 mg/dL (74-99); Non-African American GFR(CKD) 82 (>60 ml/min/1.73 sqM); Potassium 4.2 mmol/L (3.5-5.1); Sodium 136 mmol/L (137-145); Total Bilirubin 0.5 mg/dL (0.2-1.3); Total Protein 7.1 g/dL (6.3-8.2)
[2020-08-07 19:31] LABS: Appearance,Urine Clear (Clear); Bilirubin,Urine Negative (Negative); Blood,Urine Negative (Negative); Color,Urine Colorless; Glucose,Urine (UA) Negative (Negative); Ketones,Urine Negative (Negative); Leukocyte Esterase,Urine Negative (Negative); Nitrite,Urine Negative (Negative); PH, Urine 7.5 (5.0-8.0); Protein,Urine Negative (Negative); Specific Gravity,Urine 1.008 (1.001-1.035); Urobilinogen,Urine <2.0 mg/dL (<2.0)
[2020-08-07 20:26] VITALS: BP 194/78; PULSE 78; RESP 16
== END 2020-08-07 20:26 | disposition home or self-care (01) ==
LOC: EC 17:11
DX: S00.83XA Contusion of other part of head, initial encounter (principal); E86.0 Dehydration; R00.1 Bradycardia, unspecified; I10 Essential (primary) hypertension; E11.40 Type 2 diabetes mellitus with diabetic neuropathy, unspecified; E11.39 Type 2 diabetes mellitus with other diabetic ophthalmic complication; I20.9 Angina pectoris, unspecified; H42 Glaucoma in diseases classified elsewhere; E03.9 Hypothyroidism, unspecified; F32.9 Major depressive disorder, single episode, unspecified; Z79.890 Hormone replacement therapy; Z79.84 Long term (current) use of oral hypoglycemic drugs; Z79.899 Other long term (current) drug therapy; Z86.73 Personal history of transient ischemic attack (TIA), and cerebral infarction without residual deficits; W19.XXXA Unspecified fall, initial encounter
CPT/HCPCS: 36415; 70450; 71046; 72082; 72125; 72170; 80053; 81003; 82550; 83605; 83735; 84484; 85025; 93005; 99284

== ENCOUNTER 2020-09-04 08:49 | Emergency (ER) | payer MEDICARE, BC ==
[2020-09-04 09:07] VITALS: TEMP 98.5
[2020-09-04] MEDS ORDERED: SODIUM CHLORIDE 0.9% 1,000 ML IV STA (09:09)
--- NOTE | 2020-09-04 09:12 | ED ---
General Adult HPI - General Chief complaint: Fall Stated complaint: fall Time Seen by Provider: 09/04/20 08:49 Source: patient, EMS, RN notes reviewed, old records reviewed Mode of arrival: EMS Limitations: language barrier - History of Present Illness Initial comments: This is an 80-year-old female who presents emergency department after she was found on the ground in her kitchen by her daughter. The daughter went to work last night he just got home this morning and she was found down. Patient does not remember how she fell. Patient states she does have a headache she denies any neck pain. Patient denies any chest pain palpitations difficulty breathing shortest breath. Patient denies any fever chills or cough. Patient denies any abdominal pain patient denies any nausea vomiting diarrhea. Patient states she's been eating and drinking normally. - Related Data Home Medications Medication Instructions Recorded Confirmed Latanoprost Ophth [Xalatan 0.005%] 1 drop BOTH EYES HS 02/04/17 01/01/20 Travoprost [Travatan Z 0.004%] 1 drop BOTH EYES HS 02/04/17 01/01/20 metFORMIN HCL [Glucophage] 500 mg PO TID-W/MEALS 02/04/17 01/01/20 Acetaminophen [Tylenol Arthritis] 650 mg PO Q6H PRN 02/20/19 01/01/20 Cholecalciferol [Vitamin D3 (25 2,000 unit PO DAILY 02/20/19 01/01/20 Mcg = 1000 Iu)] Docusate [Colace] 100 mg PO DAILY 02/20/19 01/01/20 Metoprolol Succinate [Toprol Xl] 50 mg PO DAILY 02/20/19 01/01/20 Real Tears 2 drops BOTH EYES QID 02/20/19 01/01/20 Sertraline HCl [Zoloft] 200 mg PO DAILY 02/20/19 01/01/20 Hydrochlorothiazide 12.5 mg PO DAILY 01/01/20 01/01/20 [hydroCHLOROthiazide] Levothyroxine Sodium [Synthroid] 112 mcg PO DAILY 01/01/20 01/01/20 lisinopriL [Zestril] 30 mg PO DAILY 01/01/20 01/01/20 Previous Rx's Medication Instructions Recorded Aspirin 81 mg PO DAILY #30 chew 02/09/17 Ketorolac [Toradol] 10 mg PO Q6HR #20 tab 02/21/19 Lidocaine 5% Patch [Lidoderm 5% 1 patch TOPICAL DAILY #14 patch 02/21/19 Patch] Ibuprofen 400 mg PO Q8H PRN #15 tab 07/04/20 methocarbamoL [Robaxin] 500 mg PO TID PRN #15 tab 07/04/20 Allergies Allergy/AdvReac Type Severity Reaction Status Date / Time No Known Allergies Allergy Verified 09/04/20 09:07 Review of Systems ROS Statement: Those systems with pertinent positive or pertinent negative responses have been documented in the HPI. ROS Other: All systems not noted in ROS Statement are negative. Past Medical History Past Medical History: Chest Pain / Angina, CVA/TIA, Dementia, Diabetes Mellitus, Eye Disorder, Fibromyalgia, Hyperlipidemia, Hypertension, Memory Impairment, Osteoarthritis (OA), Pneumonia, Thyroid Disorder Additional Past Medical History / Comment(s): CVA with some L sided weakness, NIDDM type II, neuropathy bilateral hands, arthritis in legs bilaterally, bilateral eye glaucoma, hypothyroid, pt recently had corn removed from her foot. History of Any Multi-Drug Resistant Organisms: None Reported Past Surgical History: Cholecystectomy Past Anesthesia/Blood Transfusion Reactions: No Reported Reaction Past Psychological History: Depression Smoking Status: Never smoker Past Alcohol Use History: None Reported Past Drug Use History: None Reported - Past Family History Father Family Medical History: No Reported History Additional Family Medical History / Comment(s): Father was healthy. Mother Family Medical History: Diabetes Mellitus General Exam - General Exam Comments Initial Comments: GENERAL: Patient is well-developed and well-nourished. Patient is nontoxic and well- hydrated and is in mild distress. ENT: No significant lymphadenopathy is noted. Oropharynx is clear. Dry mucous membranes. Right side of the patient's scalp is a large hematoma.. EYES: The sclera were anicteric and conjunctiva were pink and moist. Extraocular movements were intact and pupils were equal round and reactive to light. Eye lids were unremarkable. PULMONARY: Unlabored respirations. Good breath sounds bilaterally. No audible rales rhonchi or wheezing was noted. CARDIOVASCULAR: There is a regular rate and rhythm without any murmurs gallops or rubs. ABDOMEN: Soft and nontender with normal bowel sounds. SKIN: Skin is clear with no lesions or rashes and otherwise unremarkable. NEUROLOGIC: Patient is alert and oriented x3. Cranial nerves II through XII are grossly intact. Motor and sensory are also intact. Normal speech, volume and content. Symmetrical smile. MUSCULOSKELETAL: Normal extremities with adequate strength and full range of motion. LYMPHATICS: No significant lymphadenopathy is noted PSYCHIATRIC: Normal psychiatric evaluation. Limitations: language barrier Course Vital Signs 09/04/20 09/04/20 09/04/20 09:00 09:11 10:30 Temperature 98.5 F Pulse Rate 67 65 64 Respiratory 18 18 17 Rate Blood Pressure 194/86 194/86 182/79 O2 Sat by Pulse 98 98 98 Oximetry Medical Decision Making - Medical Decision Making EKG shows normal sinus rhythm at 63 bpm ID interval is 150 QRS is 82 QT interval is 476 QTC is 487. EKG shows no ST segment elevation or depression. Computed tomography scan of the C-spine showed no acute abnormality. CT of the head shows a right-sided subdural with no significant midline shift. Patient also has intraparenchymal hemorrhage in the left frontal lobe and possibly left temporal lobe. I spoke with the [facility] they accepted the transfer transferred the patient. - Lab Data Result diagrams: 09/04/20 09:23 09/04/20 09:23 Lab Results 09/04/20 09/04/20 09/04/20 Range/Units 09:23 09:23 09:23 WBC 8.2 (3.8-10.6) k/uL RBC 4.53 (3.80-5.40) m/uL Hgb 12.3 (11.4-16.0) gm/dL Hct 39.6 (34.0-46.0) % MCV 87.4 (80.0-100.0) fL MCH 27.2 (25.0-35.0) pg MCHC 31.1 (31.0-37.0) g/dL RDW 14.1 (11.5-15.5) % Plt Count 150 (150-450) k/uL Neutrophils % 86 % Lymphocytes % 9 % Monocytes % 4 % Eosinophils % 0 % Basophils % 0 % Neutrophils # 7.1 (1.3-7.7) k/uL Lymphocytes # 0.7 L (1.0-4.8) k/uL Monocytes # 0.3 (0-1.0) k/uL Eosinophils # 0.0 (0-0.7) k/uL Basophils # 0.0 (0-0.2) k/uL PT 10.1 (9.0-12.0) sec INR 1.0 (<1.2) APTT 26.1 (22.0-30.0) sec Sodium (137-145) mmol/L Potassium (3.5-5.1) mmol/L Chloride (98-107) mmol/L Carbon Dioxide (22-30) mmol/L Anion Gap mmol/L BUN (7-17) mg/dL Creatinine (0.52-1.04) mg/dL Est GFR (CKD-EPI)AfAm (>60 ml/min/1.73 sqM) Est GFR (CKD-EPI)NonAf (>60 ml/min/1.73 sqM) Glucose (74-99) mg/dL Plasma Lactic Acid Joseph (0.7-2.0) mmol/L Calcium (8.4-10.2) mg/dL Magnesium (1.6-2.3) mg/dL Total Bilirubin (0.2-1.3) mg/dL AST (14-36) U/L ALT (4-34) U/L Alkaline Phosphatase (38-126) U/L Troponin I (0.000-0.034) ng/mL Total Protein (6.3-8.2) g/dL Albumin (3.5-5.0) g/dL Urine Color Light Yellow Urine Appearance Cloudy H (Clear) Urine pH 7.0 (5.0-8.0) Ur Specific [place] 1.010 (1.001-1.035) Urine Protein Trace H (Negative) Urine Glucose (UA) Negative (Negative) Urine Ketones Trace H (Negative) Urine Blood Moderate H (Negative) Urine Nitrite Negative (Negative) Urine Bilirubin Negative (Negative) Urine Urobilinogen <2.0 (<2.0) mg/dL Ur Leukocyte Esterase Negative (Negative) Urine RBC 12 H (0-5) /hpf Urine WBC <1 (0-5) /hpf Ur Squamous Epith Cells <1 (0-4) /hpf Urine Bacteria Occasional H (None) /hpf Urine Mucus Rare H (None) /hpf 09/04/20 09/04/20 09/04/20 Range/Units 09:23 09:23 09:23 WBC (3.8-10.6) k/uL RBC (3.80-5.40) m/uL Hgb (11.4-16.0) gm/dL Hct (34.0-46.0) % MCV (80.0-100.0) fL MCH (25.0-35.0) pg MCHC (31.0-37.0) g/dL RDW (11.5-15.5) % Plt Count (150-450) k/uL Neutrophils % % Lymphocytes % % Monocytes % % Eosinophils % % Basophils % % Neutrophils # (1.3-7.7) k/uL Lymphocytes # (1.0-4.8) k/uL Monocytes # (0-1.0) k/uL Eosinophils # (0-0.7) k/uL Basophils # (0-0.2) k/uL PT (9.0-12.0) sec INR (<1.2) APTT (22.0-30.0) sec Sodium 132 L (137-145) mmol/L Potassium 4.0 (3.5-5.1) mmol/L Chloride 102 (98-107) mmol/L Carbon Dioxide 21 L (22-30) mmol/L Anion Gap 9 mmol/L BUN 13 (7-17) mg/dL Creatinine 0.48 L (0.52-1.04) mg/dL Est GFR (CKD-EPI)AfAm >90 (>60 ml/min/1.73 sqM) Est GFR (CKD-EPI)NonAf >90 (>60 ml/min/1.73 sqM) Glucose 162 H (74-99) mg/dL Plasma Lactic Acid Joseph 1.5 (0.7-2.0) mmol/L Calcium 8.6 (8.4-10.2) mg/dL Magnesium 1.6 (1.6-2.3) mg/dL Total Bilirubin 0.5 (0.2-1.3) mg/dL AST 32 (14-36) U/L ALT 13 (4-34) U/L Alkaline Phosphatase 97 (38-126) U/L Troponin I 0.018 (0.000-0.034) ng/mL Total Protein 7.4 (6.3-8.2) g/dL Albumin 4.2 (3.5-5.0) g/dL Urine Color Urine Appearance (Clear) Urine pH (5.0-8.0) Ur Specific [place] (1.001-1.035) Urine Protein (Negative) Urine Glucose (UA) (Negative) Urine Ketones (Negative) Urine Blood (Negative) Urine Nitrite (Negative) Urine Bilirubin (Negative) Urine Urobilinogen (<2.0) mg/dL Ur Leukocyte Esterase (Negative) Urine RBC (0-5) /hpf Urine WBC (0-5) /hpf Ur Squamous Epith Cells (0-4) /hpf Urine Bacteria (None) /hpf Urine Mucus (None) /hpf Critical Care Time Critical Care Time: Yes Total Critical Care Time: 35 Disposition Clinical Impression: Subdural hematoma, Intraparenchymal hemorrhage of brain, Fall, Syncope Disposition: OTHER INSTITUTION NOT DEFINED Referrals: David Ace MD [Primary Care Provider] - 1-2 days - Out of Hospital Transfer - Req. Specs Out of Hospital Transfer - Requested Specifics: Other Emergency Center ([facility])
[2020-09-04 09:40] LABS: Basophils % (A) 0 %; Eosinophils % (A) 0 %; HCT 39.6 % (34.0-46.0); HGB 12.3 gm/dL (11.4-16.0); Lymphocytes # (A) 0.7 k/uL (1.0-4.8); Lymphocytes % (A) 9 %; MCH 27.2 pg (25.0-35.0); MCHC 31.1 g/dL (31.0-37.0); MCV 87.4 fL (80.0-100.0); Mean Platelet Volume 7.8; Monocytes # (A) 0.3 k/uL (0-1.0); Monocytes % (A) 4 %; Neutrophils # (A) 7.1 k/uL (1.3-7.7); Neutrophils % (A) 86 %; Platelet Count 150 k/uL (150-450); RBC 4.53 m/uL (3.80-5.40); RDW 14.1 % (11.5-15.5); WBC 8.2 k/uL (3.8-10.6)
[2020-09-04 09:41] LABS: ALT 13 U/L (4-34); AST 32 U/L (14-36); African American GFR (CKD) >90 (>60 ml/min/1.73 sqM); Albumin 4.2 g/dL (3.5-5.0); Alkaline Phosphatase 97 U/L (38-126); Anion Gap 9 mmol/L; Blood Urea Nitrogen 13 mg/dL (7-17); Calcium 8.6 mg/dL (8.4-10.2); Carbon Dioxide 21 mmol/L (22-30); Chloride 102 mmol/L (98-107); Glucose 162 mg/dL (74-99); Magnesium 1.6 mg/dL (1.6-2.3); Non-African American GFR(CKD) >90 (>60 ml/min/1.73 sqM); Sodium 132 mmol/L (137-145); Total Bilirubin 0.5 mg/dL (0.2-1.3); Total Protein 7.4 g/dL (6.3-8.2)
[2020-09-04 09:47] LABS: Partial Thromboplastin Time 26.1 sec (22.0-30.0); Prothrombin Time 10.1 sec (9.0-12.0)
[2020-09-04 10:07] LABS: Appearance,Urine Cloudy (Clear); Bacteria,Urine Occasional /hpf; Bilirubin,Urine Negative (Negative); Blood,Urine Moderate (Negative); Color,Urine Light Yellow; Glucose,Urine (UA) Negative (Negative); Ketones,Urine Trace (Negative); Leukocyte Esterase,Urine Negative (Negative); Mucus,Urine Rare /hpf; Nitrite,Urine Negative (Negative); Protein,Urine Trace (Negative); RBC,Urine 12 /hpf (0-5); Squamous Epithelial Cell,Urine <1 /hpf (0-4); Urobilinogen,Urine <2.0 mg/dL (<2.0); WBC,Urine <1 /hpf (0-5)
[2020-09-04] MEDS ORDERED: LABETALOL 5 MG/ML VIAL MDV IVP STA (10:53)
--- NOTE | 2020-09-04 10:53 | CT ---
EXAMINATION TYPE: CT brain cspine wo con DATE OF EXAM: 09/04/2020 COMPARISON: 08/07/2020 HISTORY: Weakness fall CT DLP: 1583.2 mGycm, Automated exposure control for dose reduction was used. CONTRAST: Patient injected with 0 mL of Isovue 300. CT of the brain is performed utilizing 3 mm thick sections through the posterior fossa and 3 mm thick sections through the remaining calvarium. Study is performed within 24 hours of arrival to the hospital. There is a large superficial soft tissue swelling over the right posterior parietal region. Underlyi ng fractures not identified. There is a subdural hematoma in the right posterior parietal-occipital region. This has a maximal dep th of 1.6 cm and covers approximately 7.3 cm in length along the calvarium. This has moderate displac ement of the adjacent brain. No changing density within th brain is evident. No midline shift is evid ent. No subfalcine herniation is evident. Quadrigeminal plate and ambient cisterns are patent. Note i s also made of small amount of subdural hemorrhage along the left tentorium with a depth of 0.6 cm ma ximum. A punctate hemorrhage may be within the intraparenchymal left temporal lobe, series 205 image 22, series 206 image 33. Along the inferior left frontal lobe small amount of increased density is p resent likely subarachnoid collection, series 206 image 7, series 205 image 18 No mass lesion is evident. No acute infarcts are evident. There is some effacement of the sulci adjacent to the subdural hemorrhage on the right parietal regio n. Otherwise, ventricles and sulci are appropriate for the patient age. Paranasal sinuses and mastoid air cells within the [id number] are clear. IMPRESSIONS: 1. Subdural hemorrhage right parietal-occipital region with a depth of 1.6 cm with displacement of th e adjacent brain 2. Small subdural hemorrhage is along the left tentorium with a depth of 0.6 cm. 3. Punctate intraparenchymal hemorrhage proximal left temporal lobe. 4. Small amount of subdural or subarachnoid hemorrhage is likely present along the inferior left fron deny lobe. 5. Report was called to emergency room physician by Dr. Marques by telephone 1040 hours 09/04/2020 CT cervical spine. COMPARISON: 08/07/2020 CT of the cervical spine is performed in the axial plane at 2 mm thick sections. Reconstructed image s in the coronal, and sagittal plane are reviewed on the computer. No acute fractures are evident. There is straightening of the vertebral body alignment and sagittal plane. Small calcification may be posterior to the C6 spinous process may be calcification within the ligament. No acute avulsion at t his level is identified. Is disc space narrowing is present greatest at C5-6 Vertebral body heights are preserved. No spinal canal stenosis is evident. No neural foraminal stenosis is evident. Exam is stable from comparison. IMPRESSIONS: 1. No acute osseous abnormality. 2. Straightening of the cervical spine which can related to patient positioning.
[2020-09-04 11:08] VITALS: BP 182/77; PULSE 61; RESP 18
[2020-09-04] MEDS ORDERED: hydrALAZINE HCL 20 MG/ML 1 ML VIAL IVP STA (11:17)
--- NOTE | 2020-09-04 11:58 | XR ---
EXAMINATION TYPE: XR pelvis AP view DATE OF EXAM: 09/04/2020 COMPARISON: 08/07/2020 HISTORY: Trauma TECHNIQUE: AP pelvis FINDINGS: Femoral heads articulate with the acetabulum. Joint space narrowing is present slightly gre ater on the left. Symphysis pubis and sacroiliac joints are normal. Normal colonic bowel gas is prese nt. IMPRESSION: 1. No acute osseous abnormality AP pelvis
--- NOTE | 2020-09-04 11:59 | XR ---
EXAMINATION TYPE: XR chest 1V portable DATE OF EXAM: 09/04/2020 COMPARISON: 08/07/2020 INDICATION: Trauma TECHNIQUE: Single frontal view of the chest is obtained. FINDINGS: The heart size is mildly prominent. Mediastinum appears appropriate. The pulmonary vasculature is prominent. Mild diffuse increased lung markings are present which may be on the basis of early pulmonary edema. No pneumothorax is evident. No acute displaced rib fractures are evident. IMPRESSION: 1. Correlation recommended for early congestive heart failure. 2. No acute posttraumatic changes evident.
== END 2020-09-04 11:20 | disposition other institution (70) ==
LOC: EC 08:49
DX: S06.5X9A Traumatic subdural hemorrhage with loss of consciousness of unspecified duration, initial encounter (principal); R55 Syncope and collapse; I10 Essential (primary) hypertension; E11.40 Type 2 diabetes mellitus with diabetic neuropathy, unspecified; E11.39 Type 2 diabetes mellitus with other diabetic ophthalmic complication; H42 Glaucoma in diseases classified elsewhere; E03.9 Hypothyroidism, unspecified; I20.9 Angina pectoris, unspecified; F32.9 Major depressive disorder, single episode, unspecified; Z79.890 Hormone replacement therapy; Z79.899 Other long term (current) drug therapy; Z79.84 Long term (current) use of oral hypoglycemic drugs; Z86.73 Personal history of transient ischemic attack (TIA), and cerebral infarction without residual deficits; W19.XXXA Unspecified fall, initial encounter; Y92.000 Kitchen of unspecified non-institutional (private) residence as the place of occurrence of the external cause
CPT/HCPCS: 36415; 93005; 80053; 83605; 83735; 84484; 85025; 85610; 85730; 81001; 72170; 71045; 72125; 70450; 99285; 96374; 96375; 96361 ×2; J0360